=== PATIENT | female | born 1945 | race Caucasian/White ===

== ENCOUNTER 2020-01-04 08:58 | Outpatient (CLI) | payer MEDICARE, SELFPAY | END 2020-01-04 08:59 | disposition home or self-care (01) | LOC: ANHCOVIDDT 09:00 | PROVIDERS: PCP Family Medicine; Visit Provider Internal Medicine Gastroenterology | DX: Z01.818 Encounter for other preprocedural examination (principal); Z53.8 Procedure and treatment not carried out for other reasons | CPT/HCPCS: 99199; 87635; C9803; U0003 ==

== ENCOUNTER 2020-01-07 07:48 | Outpatient (CLI) | payer MEDICARE, SELFPAY ==
[2020-01-07 18:51] LABS: SARS-CoV-2 RNA PCR Negative
== END 2020-01-07 07:49 | disposition home or self-care (01) ==
LOC: ANHCOVIDDT 07:48
PROVIDERS: PCP Family Medicine; Visit Provider Internal Medicine Gastroenterology
DX: Z01.812 Encounter for preprocedural laboratory examination (principal); Z20.828 Contact with and (suspected) exposure to other viral communicable diseases
CPT/HCPCS: 87635; C9803; U0003

== ENCOUNTER 2020-01-08 01:23 | Day surgery (SDC) | payer MEDICARE, SELFPAY ==
[2020-01-01 15:18] VITALS: BMI 43.1
--- NOTE | 2020-01-08 10:42 | P.PNAN_ITS ---
Anes - Initial Pre Proc Eval Procedure: Operation Date: 01/08/20 12:00 Proposed Procedures p Esophagogastroduodenoscopy - Jesus Alberto Zelaya DO Date/Time: 01/08/20 10:42 Surgeon: Jesus Alberto Zelaya DO Pre Op Diagnosis: cirrhosis of liver Patient Data Age: 74 Gender: F Height: 1.63 m Weight: 114 kg Allergies Allergy/AdvReac Type Severity Reaction Status Date / Time azithromycin Allergy Mild Diarrhea Verified 11/11/19 14:46 Penicillins Allergy Unknown Unknown Unverified 11/11/19 14:46 sulfamethizole Allergy Unknown Verified 11/11/19 14:46 sulfamethoxazole AdvReac Intermediate COULDNT Verified 11/11/19 14:46 WALK trimethoprim AdvReac Intermediate COULDNT Verified 11/11/19 14:46 WALK Home Medications Medication Instructions Recorded Confirmed Type clobetasol 0.05 % topical cream 1 applic TOPICAL DAILY PRN 09/01/19 01/01/20 History metformin 500 mg tablet,extended 1,000 mg PO DAILY #180 tablet 09/24/19 01/01/20 Rx release 24 hr Patient hx anesthesia problems: none Family hx anesthesia problems: none PMFSH Past Medical History Medical History Arthritis Breast cancer Carpal tunnel syndrome FH: cholecystectomy FH: mastectomy Morbid obesity with BMI of 40.0-44.9, adult 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 SEVERE PAIN-ER CT SHOWED CIRRHOSIS Surgical History Surgical History H/O: hysterectomy History of carpal tunnel surgery History of total left knee replacement History of total right knee replacement S/P surgery on nasal septum Family History Family History Mother Polymyalgia rheumatica Son Trigeminal nerve disease Sibling Churg-Tung syndrome Mother Aneurysm Mother Heart disease Mother Carotid artery obstruction Other Family history of musculoskeletal disease Social History Social History Smoking status: Never smoker Second hand tobacco smoke exposure: No Alcohol intake: never Anes - Eval Final PreProcedure Day of Procedure 01/08/20 10:42 Patient weight: morbidly obese Heart: regular rate and rhythm Lungs: clear to auscultation and normal air movement Airway: Mallampati scale class II Neurological: alert and oriented Last oral intake: >/= 8 hours ASA classification: III Emergent: no Anesthetic plan: proceed Anesthesia type and monitoring: general GIVS Informed Consent: The patient's anesthetic plan and its attendant risks and be nefits were discussed with the patient/family/POA. Questions were solicited and answers provided to the satisfaction of the patient/family/POA.
[2020-01-08 10:53] VITALS: BP 151/70; PULSE 73; RESP 16; TEMP 36.5; O2SAT 99; BMI 44.1
[2020-01-08] MEDS: LACTATED RINGERS 1,000 ML 150 ML IV CONT (11:17)
[2020-01-08 11:22] LABS: Glucose Point of Care 133 (65-105)
--- NOTE | 2020-01-08 11:56 | PM.IMHP ---
H&P: HPI History of Present Illness Chief complaint: cirrhosis of liver Narrative: Radha Harrison is a 74 year old femaleIs here for EGD. Impression: Cirrhosis of the liver. For past medical history. Recommendation: EGD. History: this very pleasant lady is here for EGD. She has been found to have underlying cirrhosis. Etiology cirrhosis probably idiopathic/ LYNN involved. Workup is pending. GI review systems negative at this time. She is here for EGD to assess for varices. General: very pleasant patient in no acute distress. HEENT: Head was normocephalic sclerae is clear mouth without masses neck was supple. Heart: Rate rhythm regular without S3 or S4. Lungs: CTA. Abdomen: Soft with no guarding or rigidity. Bowel sounds were active. Neurologic: Cranial nerves 2 through 12 intact. No focal defects. No clonus. Musculoskeletal system: Revealed no joint tenderness or swelling no muscle atrophy. Extremities: Reveal no significant edema. Skin: Warm and dry with normal turgor. Mental status: intact. Patient is alert and oriented. Review of Systems Review of Systems: All systems reviewed & are unremarkable except as noted in HPI and below PMFSH Past Medical History Medical History (Updated 01/08/20 @ 11:55 by Jesus Alberto Zelaya DO) Arthritis Breast cancer RTX Carpal tunnel syndrome Cirrhosis Morbid obesity with BMI of 40.0-44.9, adult Prediabetes Vulva neoplasm Surgical History Surgical History H/O: hysterectomy History of carpal tunnel surgery History of total left knee replacement History of total right knee replacement S/P surgery on nasal septum Family History Family History Mother Polymyalgia rheumatica Son Trigeminal nerve disease Sibling Churg-Tung syndrome Mother Aneurysm Mother Heart disease Mother Carotid artery obstruction Other Family history of musculoskeletal disease Social History Social History Smoking status: Never smoker Second hand tobacco smoke exposure: No Alcohol intake: never Meds Home Medications and Allergies Home Medications Medication Instructions Recorded Confirmed Type clobetasol 0.05 % topical cream 1 applic TOPICAL DAILY PRN 09/01/19 01/01/20 History metformin 500 mg tablet,extended 1,000 mg PO DAILY #180 tablet 09/24/19 01/01/20 Rx release 24 hr Allergies Allergy/AdvReac Type Severity Reaction Status Date / Time azithromycin Allergy Mild Diarrhea Verified 01/08/20 10:51 Penicillins Allergy Unknown Unknown Verified 01/08/20 10:51 sulfamethizole Allergy Unknown Other Verified 01/08/20 10:51 sulfamethoxazole AdvReac Intermediate COULDNT Verified 01/08/20 10:51 WALK trimethoprim AdvReac Intermediate COULDNT Verified 01/08/20 10:51 WALK Vital Signs Vital Signs - 24 hr 01/08/20 10:53 Temperature 36.5 C Pulse Rate 73 Respiratory Rate 16 Blood Pressure 151/70 H Pulse Oximetry 99
[2020-01-08 12:15] VITALS: BP 121/66; PULSE 67; RESP 16; O2SAT 97
[2020-01-08 12:25] VITALS: BP 127/73; PULSE 66; RESP 18; O2SAT 98
[2020-01-08 12:35] VITALS: BP 141/82; PULSE 65; RESP 18; O2SAT 97
== END 2020-01-08 12:54 | disposition home or self-care (01) ==
PROVIDERS: PCP Family Medicine; Visit Provider Internal Medicine Gastroenterology
PROC: 0DJ08ZZ Inspection of Upper Intestinal Tract, Via Natural or Artificial Opening Endoscopic (ICD-10-PCS; CPT 43235; principal; 2020-01-08 12:00)
DX: K74.60 Unspecified cirrhosis of liver (principal); K31.7 Polyp of stomach and duodenum; K29.70 Gastritis, unspecified, without bleeding; K31.819 Angiodysplasia of stomach and duodenum without bleeding; E66.01 Morbid (severe) obesity due to excess calories; Z68.41 Body mass index [BMI] 40.0-44.9, adult; Z79.84 Long term (current) use of oral hypoglycemic drugs; Z85.3 Personal history of malignant neoplasm of breast
CPT/HCPCS: 43239; 43270; 87081; 88305; J2704; J7120

== ENCOUNTER 2020-02-22 07:08 | Outpatient (CLI) | payer MEDICARE, SELFPAY ==
[2020-02-22 07:34] LABS: Basophils Percent Auto 0.3 % (0.2-1.2); Eosinophils Absolute Auto 0.4 K/mm3 (0-0.3); Eosinophils Percent Auto 5.6 % (0-4.4); Hematocrit 39.5 % (37.0-47.0); Immature Granulocyte Absolute 0.01 K/mm3 (0.00-0.031); Immature Granulocyte Percent A 0.2 % (0-0.5); Lymphocytes Absolute Auto 2.21 K/mm3 (0.9-3.2); Lymphocytes Percent Auto 35.1 % (18.3-44.2); Mean Corpuscular HGB Conc 32.9 g/dl (32-36); Mean Corpuscular Hemoglobin 30.3 pg (26-34); Mean Corpuscular Volume 92.1 fl (80-100); Mean Platelet Volume 9.8 fl (7.4-10.4); Monocytes Absolute Auto 0.7 K/mm3 (0.1-0.6); Monocytes Percent Auto 10.8 % (2.6-8.5); Platelet Count Result 175 k/mm3 (150-375); Red Blood Count 4.29 M/mm3 (4.2-5.4); Red Cell Distribution Width 13.5 % (11.5-14.5); White Blood Count 6.3 K/mm3 (4.5-10.0)
[2020-02-22 07:40] LABS: INR 1.2; Prothrombin Time 14.5 Seconds (11.1-14.7)
[2020-02-22 07:43] LABS: Alanine Aminotransferase 33 U/L (4-35); Albumin Level 4.1 g/dL (3.5-5.1); Alkaline Phosphatase 87 U/L (38-126); Aspartate Amino Transferase 26 U/L (14-36); Bilirubin,Total 1.2 mg/dL (0.2-1.3); Blood Urea Nitrogen 17 mg/dL (7-17); Calcium 9.7 mg/dL (8.4-10.2); Carbon Dioxide 27 mmol/L (22-30); Chloride 102 mmol/L (98-107); Cholesterol 162 mg/dL (0-200); Estimated Glomerular Filt Rate > 60; Glucose 133 mg/dL (65-105); HDL Direct 47 mg/dL; Potassium 4.1 mmol/L (3.4-5.0); Sodium 136 mmol/L (137-145); Triglycerides 127 mg/dL (<150)
[2020-02-22 07:54] LABS: LDL Cholesterol Direct 84 mg/dL
[2020-02-22 08:37] LABS: MALB Creatinine Ratio < 5.8 mg/g (0-30); Microalbumin Urine Random < 6.0 mg/L (0-16.7)
[2020-02-22 08:50] LABS: Hemoglobin A1C 6.9 % (<5.7)
[2020-02-27 17:58] LABS: Alpha Fetoprotein Tumor Marker 5.5 ng/mL (<6.1)
== END 2020-02-22 07:09 | disposition home or self-care (01) ==
PROVIDERS: PCP Family Medicine; Referring Provider Internal Medicine Gastroenterology; Visit Provider Family Medicine
DX: K74.60 Unspecified cirrhosis of liver (principal); E11.9 Type 2 diabetes mellitus without complications; Z13.220 Encounter for screening for lipoid disorders; Z68.41 Body mass index [BMI] 40.0-44.9, adult
CPT/HCPCS: 36415; 80053; 80061; 82043; 82105; 83036; 84443; 85025; 85610

== ENCOUNTER 2020-04-09 11:26 | Emergency (ER) | payer MEDICARE, SELFPAY ==
[2020-04-09 11:31] VITALS: BP 184/69; PULSE 80; RESP 20; TEMP 36.4; O2SAT 96
--- NOTE | 2020-04-09 11:33 | ED.UPPEXIN ---
HPI - Extremity Injury (Upper) General Chief Complaint: Extremity Problem,Nontraumatic Stated Complaint: rt arm pain Time Seen by Provider: 04/09/20 11:40 Source: patient and RN notes reviewed Mode of arrival: ambulatory Limitations: no limitations History of Present Illness HPI narrative: 74-year-old female with history of liver dysfunction presents with concern for right shoulder pain. Sure denies acute injury, trauma to the shoulder. Denies any past injury to the shoulder. Reports she sleeps on her right shoulder. Reports on the joint and lateral shoulder began hurting when she moves the arm, particularly when she pulled on her refrigerator door. Reports since then the pain has worsened, with pain at rest, worsening pain with range of motion. She denies swelling, redness, bruising. She denies chest pain, shortness of breath. Denies any intervention for her pain. MD complaint: injury to: right and shoulder Related Data Allergies Allergy/AdvReac Type Severity Reaction Status Date / Time azithromycin Allergy Mild Diarrhea Verified 02/17/20 15:17 Penicillins Allergy Unknown Unknown Verified 02/17/20 15:17 sulfamethizole Allergy Unknown Other Verified 02/17/20 15:17 sulfamethoxazole AdvReac Intermediate COULDNT Verified 02/17/20 15:17 WALK trimethoprim AdvReac Intermediate COULDNT Verified 02/17/20 15:17 WALK Review of Systems Review of Systems: Narrative: CONSTITUTIONAL: Denies malaise, chills, sweats, or fever. CARDIOVASCULAR: Denies chest pain, palpitations, or edema. RESPIRATORY: Denies cough or dyspnea. GASTROINTESTINAL: Denies abdominal pain, nausea, vomiting SKIN: Denies bruising, redness MUSCULOSKELETAL: Reports right shoulder pain NEUROLOGIC: Denies numbness, weakness. All systems reviewed & are unremarkable except as noted in HPI and below PMFSH Past Medical History Medical History (Updated 04/09/20 @ 11:50 by Anisha Washington NP) Arthritis Breast cancer RTX Carpal tunnel syndrome Chronic low back pain without sciatica Cirrhosis History of deviated nasal septum History of right breast cancer Lichen sclerosus of female genitalia Morbid obesity with BMI of 40.0-44.9, adult Type 2 diabetes mellitus without complication, without long-term current use of insulin Unspecified osteoarthritis, unspecified site Vulva neoplasm Surgical History Surgical History H/O: hysterectomy History of appendectomy History of carpal tunnel release (~1987) History of carpal tunnel surgery History of cholecystectomy (~1974) History of foot surgery (~1979) History of knee replacement 1999 & 2004 History of lumpectomy (~2013) History of total left knee replacement History of total right knee replacement Hx of hysterectomy, total (~10/1992) S/P surgery on nasal septum (~1969) Social History Social History (Updated 02/17/20 @ 15:26 by Marcela Sofia) Smoking status: Never smoker Second hand tobacco smoke exposure: No Alcohol intake: never Substance use: never Substance use type: does not use Gender identity (if verbalized by the patient): Female Comments At time of signature, agree with nursing past medical, surgical, social and family history. There is no relevant family history pertinent to the presenting complaint Exam Narrative: Exam Narrative: GENERAL: Well-appearing, well-nourished, and in no acute distress. HEAD: Normocephalic, atraumatic. EYES: PERRLA, conjunctivae clear NECK: Supple. CHEST: Speaks in full sentences. No respiratory distress. HEART: Regular rate and rhythm. Normal and equal peripheral pulses. EXTREMITIES: Right arm, hand, digits have normal strength and sensation, no edema. Limited range of motion related to pain. 5/5 strength with shoulder abduction, abduction, flexion and extension. Normal sensation with sensitivity to light touch and pain. No open wounds, no skin tenting, no devitalized tissue or atr
== END 2020-04-09 12:00 | disposition home or self-care (01) ==
PROVIDERS: Emergency Provider Nurse Practitioner; PCP Family Medicine
DX: M25.511 Pain in right shoulder (principal); Z96.653 Presence of artificial knee joint, bilateral; M19.90 Unspecified osteoarthritis, unspecified site; K74.60 Unspecified cirrhosis of liver; Z85.3 Personal history of malignant neoplasm of breast; E66.01 Morbid (severe) obesity due to excess calories; Z68.41 Body mass index [BMI] 40.0-44.9, adult; E11.9 Type 2 diabetes mellitus without complications; Z79.4 Long term (current) use of insulin; N90.4 Leukoplakia of vulva
CPT/HCPCS: 99213; A4565; G0463

== ENCOUNTER → 2020-04-18 14:39 | Outpatient (CLI) | payer MEDICARE, OTHER, SELFPAY ==
--- NOTE | ~2020-04-18 | XR_ITS ---
XR finger 4th LT min 2V DATE: 04/18/2020 15:05 INDICATION: Superficial foreign body TECHNIQUE: 4 views COMPARISON: None FINDINGS: There is a probable old anteriorly displaced avulsion fracture of the base of distal phalan x. There is osteoarthritic change at the proximal and particularly distal interphalangeal joints with a probable degenerative ossicle at the distal interphalangeal joint. No recent fracture or dislocation, periosteal reaction or bone destruction is detected. IMPRESSION: Probable anterior avulsion fracture of base of the distal phalanx Osteoarthritis Reviewed, dictated and finalized at location A.
== END ==
PROVIDERS: Visit Provider Nurse Practitioner
DX: S60.459A Superficial foreign body of unspecified finger, initial encounter (principal); X58.XXXA Exposure to other specified factors, initial encounter; M19.042 Primary osteoarthritis, left hand
CPT/HCPCS: 73140

== ENCOUNTER 2020-06-25 06:44 | Outpatient (NON) | payer MEDICARE, SELFPAY ==
[2020-06-26 21:18] LABS: SARS-CoV-2 RNA PCR Positive
== END 2020-06-25 06:45 ==
LOC: ANHCOVIDDT 07:06
PROVIDERS: Visit Provider Nurse Practitioner Family
DX: U07.1 COVID-19 (principal)
CPT/HCPCS: 87635; C9803; U0003

== ENCOUNTER → 2020-11-17 15:52 | Outpatient (CLI) | payer MEDICARE, SELFPAY ==
--- NOTE | ~2020-11-17 | XR_ITS ---
EXAMINATION: XR toe 3rd LT min 2V DATE: 11/17/2020 16:55 INDICATION: Left third toe injury. TECHNIQUE: 4 views of left third toe were obtained. COMPARISON: None. FINDINGS: Bone alignment is normal. No fracture. There is mild osteoarthritis of third proximal inter phalangeal joint and severe osteoarthritis of third distal interphalangeal joint. IMPRESSION: 1. Polyarticular osteoarthritis. Reviewed, dictated and finalized at location A.
== END ==
PROVIDERS: Visit Provider Nurse Practitioner Family
DX: S90.122A Contusion of left lesser toe(s) without damage to nail, initial encounter (principal); M19.072 Primary osteoarthritis, left ankle and foot
CPT/HCPCS: 73660

== ENCOUNTER → 2020-12-08 10:26 | Outpatient (CLI) | payer MEDICARE, SELFPAY ==
--- NOTE | ~2020-12-08 | DEXA_ITS ---
Bone Density Report Name: Radha Harrison Age: 75 Sex: Female Ethnicity: White Date of : 1945 Indication: postmenopausal; screening for osteoporosis; height loss; hysterectomy; Referring Provider: Joellen Wall Study: Bone densitometry was performed. Exam Date: December 08, 2020 Accession number: [id number] Bone Density: Region BMD T-score Z-score Classification AP Spine (L1-L4) 1.343 2.7 5.2 Normal Femoral Neck (Left) 0.849 0.0 2.1 Normal Total Hip (Left) 1.191 2.0 3.9 Normal Femoral Neck (Right) 0.992 1.3 3.4 Normal Total Hip (Right) 1.155 1.7 3.6 Normal Total Hip Mean 1.173 1.9 3.8 Normal World Health Organization criteria for BMD impression classify patients as: Normal (T-score at or above -1.0), Osteopenia (T-score between -1.0 and -2.5), or Osteoporosis (T-score at or below -2.5). 10-year Fracture Risk: FRAX not reported because: All T-scores for Spine Total, Hip Total, Femoral Neck at or above -1.0 Previous Exams: Region Exam Age BMD T-score BMD Change BMD Change Date g/cm2 vs Baseline vs Previous AP Spine(L1-L4) 12/08/2020 75 1.343 2.7 -0.129* -0.091* 08/22/2018 73 1.434 3.5 -0.038* 0.028* 12/30/2014 69 1.406 3.3 -0.066* 0.023* 11/11/2012 67 1.382 3.0 -0.089* -0.089* 11/10/2010 65 1.472 3.9 Total Hip(Left) 12/08/2020 75 1.191 2.0 -0.111* -0.047* 08/22/2018 73 1.238 2.4 -0.064* -0.023 12/30/2014 69 1.261 2.6 -0.041* -0.031* 11/11/2012 67 1.293 2.9 -0.009 -0.009 11/10/2010 65 1.302 2.9 Total Hip(Right) 12/08/2020 75 1.155 1.7 -0.120* -0.125* 08/22/2018 73 1.281 2.8 0.005 -0.041* 12/30/2014 69 1.321 3.1 0.046* 0.038* 11/11/2012 67 1.284 2.8 0.008 0.008 11/10/2010 65 1.276 2.7 *Denotes significance at 95% confidence level, LSC for AP Spine = 0.022 g/cm2, LSC for Total Hip = 0.027 g/cm2 Clinical Information Provided by Patient: Has the following medical conditions: Hysterectomy Patient maximum height was 65 Menopause Age: 48 No regular weight bearing exercise Drinks caffeinated beverages Onset of menses at age 10 Number of children 3 Impression: The patient has normal bone mass. The BMD for the AP Spine(L1-L4) decreased, lynn
== END ==
PROVIDERS: PCP Family Medicine
DX: Z78.0 Asymptomatic menopausal state (principal)
CPT/HCPCS: 77080

== ENCOUNTER 2020-12-22 08:34 | Outpatient (CLI) | payer MEDICARE, SELFPAY ==
[2020-12-22 09:27] LABS: Alanine Aminotransferase 39 U/L (4-35); Albumin Level 4.2 g/dL (3.5-5.1); Alkaline Phosphatase 79 U/L (38-126); Anion Gap 4 mmol/L (8-16); Aspartate Amino Transferase 28 U/L (14-36); Bilirubin,Total 1.2 mg/dL (0.2-1.3); Blood Urea Nitrogen 18 mg/dL (7-17); Calcium 10.3 mg/dL (8.4-10.2); Carbon Dioxide 32 mmol/L (22-30); Chloride 103 mmol/L (98-107); Estimated Glomerular Filt Rate > 60; Glucose 132 mg/dL (65-105); Potassium 4.2 mmol/L (3.4-5.0); Sodium 139 mmol/L (137-145)
== END 2020-12-22 08:35 | disposition home or self-care (01) ==
LOC: ANHLAB 08:37
PROVIDERS: PCP Family Medicine; Visit Provider Family Medicine
DX: E11.9 Type 2 diabetes mellitus without complications (principal)
CPT/HCPCS: 36415; 80053; 83036

== ENCOUNTER 2021-04-06 07:13 | Outpatient (CLI) | payer MEDICARE, SELFPAY ==
--- NOTE | ~2021-04-06 | XR_ITS ---
XR lumbar spine 2-3V 04/06/2021 08:22 Indication: Low back pain Procedure: 3 views of the lumbar spine Comparison: 07/11/2015 Findings: There is disc narrowing at all lumbar levels with grade 1 degenerative spondylolisthesis at L4-5. There is moderate multilevel facet hypertrophy. Pedicles intact. There are cholecystectomy cli ps. Sacral foramen are symmetric. There is advanced multilevel facet hypertrophy at L4-5 and L5-S1. T here has been progression of disc narrowing at L4-5 and L3-4. Impression: 1: Progression of severe lumbar spondylosis with grade 1 spondylolisthesis at L4-5. Reviewed, dictated and finalized at location A. Impression: 1: Progression of severe lumbar spondylosis with grade 1 spondylolisthesis at L 4-5.
[2021-04-06 07:43] LABS: Basophils Percent Auto 0.7 % (0.2-1.2); Eosinophils Absolute Auto 0.4 K/mm3 (0-0.3); Eosinophils Percent Auto 6.2 % (0-4.4); Hematocrit 40.8 % (37.0-47.0); Hemoglobin 13.3 g/dL (12.0-15.0); Immature Granulocyte Absolute 0.02 K/mm3 (0.00-0.031); Immature Granulocyte Percent A 0.3 % (0-0.5); Lymphocytes Absolute Auto 2.15 K/mm3 (0.9-3.2); Lymphocytes Percent Auto 35.8 % (18.3-44.2); Mean Corpuscular HGB Conc 32.6 g/dl (32-36); Mean Corpuscular Hemoglobin 30.7 pg (26-34); Mean Corpuscular Volume 94.2 fl (80-100); Mean Platelet Volume 9.7 fl (7.4-10.4); Monocytes Absolute Auto 0.6 K/mm3 (0.1-0.6); Monocytes Percent Auto 10.5 % (2.6-8.5); Neutrophils Absolute Auto 2.8 K/mm3 (1.3-6.7); Neutrophils Percent Auto 46.5 % (45.5-73.1); Platelet Count Result 163 k/mm3 (150-375); Red Blood Count 4.33 M/mm3 (4.2-5.4); Red Cell Distribution Width 13.7 % (11.5-14.5)
[2021-04-06 08:00] LABS: Alanine Aminotransferase 35 U/L (4-35); Alkaline Phosphatase 80 U/L (38-126); Anion Gap 4 mmol/L (8-16); Aspartate Amino Transferase 27 U/L (14-36); Bilirubin,Total 1.5 mg/dL (0.2-1.3); Blood Urea Nitrogen 17 mg/dL (7-17); Calcium 9.5 mg/dL (8.4-10.2); Carbon Dioxide 31 mmol/L (22-30); Chloride 104 mmol/L (98-107); Cholesterol 187 mg/dL (0-200); Estimated Glomerular Filt Rate > 60; Glucose 132 mg/dL (65-110); HDL Direct 61 mg/dL; Potassium 3.9 mmol/L (3.4-5.0); Sodium 139 mmol/L (137-145); Triglycerides 88 mg/dL (<150)
[2021-04-06 08:11] LABS: LDL Cholesterol Direct 86 mg/dL
[2021-04-06 08:24] LABS: Hemoglobin A1C 6.9 % (<5.7)
[2021-04-06 09:11] LABS: Vitamin D 25 Hydroxy 47.6 ng/mL
[2021-04-07 02:33] LABS: Free T4 Free Thyroxine Reflex 1.41 ng/dL (0.78-2.19)
== END 2021-04-06 07:14 | disposition home or self-care (01) ==
PROVIDERS: PCP Family Medicine; Visit Provider Family Medicine
DX: M54.5 Low back pain (principal); E11.9 Type 2 diabetes mellitus without complications; Z13.220 Encounter for screening for lipoid disorders; E55.9 Vitamin D deficiency, unspecified; K74.60 Unspecified cirrhosis of liver; G89.29 Other chronic pain; M47.816 Spondylosis without myelopathy or radiculopathy, lumbar region; M43.16 Spondylolisthesis, lumbar region
CPT/HCPCS: 36415; 72100; 80053; 80061; 82306; 83036; 84439; 84443; 84480; 85025

== ENCOUNTER 2021-10-05 07:05 | Outpatient (CLI) | payer MEDICARE, SELFPAY ==
[2021-10-05 07:32] LABS: Alanine Aminotransferase 39 U/L (4-35); Alkaline Phosphatase 86 U/L (38-126); Anion Gap 6 mmol/L (8-16); Aspartate Amino Transferase 28 U/L (14-36); Bilirubin,Total 1.2 mg/dL (0.2-1.3); Blood Urea Nitrogen 20 mg/dL (7-17); Calcium 9.7 mg/dL (8.4-10.2); Carbon Dioxide 31 mmol/L (22-30); Chloride 102 mmol/L (98-107); Estimated Glomerular Filt Rate > 60; Glucose 161 mg/dL (65-110); Potassium 4.2 mmol/L (3.4-5.0); Sodium 139 mmol/L (137-145)
[2021-10-05 08:18] LABS: Hemoglobin A1C 6.9 % (<5.7)
== END 2021-10-05 07:06 | disposition home or self-care (01) ==
PROVIDERS: PCP Family Medicine; Visit Provider Family Medicine
DX: E11.9 Type 2 diabetes mellitus without complications (principal)
CPT/HCPCS: 36415; 80053; 83036

== ENCOUNTER 2022-05-07 12:42 | Outpatient (CLI) | payer MEDICARE, SELFPAY ==
--- NOTE | ~2022-05-07 | US_ITS ---
EXAMINATION: US carotid duplex BI DATE: 05/07/2022 14:03 INDICATION: Signs and symptoms of circulatory system. TECHNIQUE: Grayscale, color Doppler, and pulsed Doppler images of the cervical carotid arteries were obtained. The degree of vessel stenosis is placed in one of the following categories: normal, <50%, 5 0-69%, >=70% but less than near-occlusion, near-occlusion, or total occlusion. Note that percent sten osis relative to normal distal artery lumen diameter is indirectly measured from velocity measurement s as described by Hill, et al. Radiology 2003; 229:340-346. Notes: Normal: Peak systolic velocity <125 centimeters/sec and no plaque <50%. Peak systolic velocity <125 ( EDV <40; ICA/CCA PSV ratio <2.0; used these factors only a tandem lesions or low cardiac output or co ntralateral disease) 50-69 %: PSV 125-230 (EDV 40-100; ratio 2-4) >= 70% but less than near occlusion: PSV greater than 230 (EDV > 100; ratio> 4.0) Near Occlusion: PSV that is variable; markedly narrowed lumen Occlusion: Absent flow on color/spectral Doppler and no lumen on sethi scale. COMPARISON: None. FINDINGS: RIGHT: The right common carotid artery (CCA) peak systolic velocity (PSV) is 78 cm/s. The right internal car otid artery (ICA) PSV is 78 cm/s. The right ICA end-diastolic velocity (EDV) is 20 cm/s. The right IC A/CCA PSV ratio is 1.0. The external carotid artery (ECA) PSV is 120 cm/s. There is antegrade flow in the right vertebral artery. LEFT: The left CCA PSV is 63 cm/s. The left ICA PSV is 74 cm/s. The left ICA EDV is 21 cm/s. The left ICA/C CA PSV ratio is 1.2. The ECA PSV is 73 cm/s. There is antegrade flow in the left vertebral artery. IMPRESSION: 1. Less than 50% stenosis in the right internal carotid artery by sonographic criteria. 2. Less than 50% stenosis in the left internal carotid artery by sonographic criteria. Reviewed, dictated and finalized at location A. IMPRESSION: 1. Less than 50% stenosis in the right internal carotid artery by sonographic c michealeria. 2. Less than 50% stenosis in the left internal carotid artery by sonographic cr kemar.
== END 2022-05-07 12:43 | disposition home or self-care (01) ==
PROVIDERS: PCP Family Medicine; Visit Provider Nurse Practitioner Family
DX: R09.89 Other specified symptoms and signs involving the circulatory and respiratory systems (principal); I65.23 Occlusion and stenosis of bilateral carotid arteries
CPT/HCPCS: 93880

== ENCOUNTER 2022-05-09 07:42 | Outpatient (CLI) | payer MEDICARE, SELFPAY ==
[2022-05-09 08:06] LABS: Basophils Absolute Auto 0.1 K/mm3 (0.0-0.1); Basophils Percent Auto 0.8 % (0.2-1.2); Eosinophils Absolute Auto 0.3 K/mm3 (0-0.3); Eosinophils Percent Auto 4.4 % (0-4.4); Hematocrit 42.9 % (37.0-47.0); Hemoglobin 13.8 g/dL (12.0-15.0); Immature Granulocyte Absolute 0.02 K/mm3 (0.00-0.031); Immature Granulocyte Percent A 0.3 % (0-0.5); Lymphocytes Absolute Auto 2.13 K/mm3 (0.9-3.2); Lymphocytes Percent Auto 29.5 % (18.3-44.2); Mean Corpuscular HGB Conc 32.2 g/dl (32-36); Mean Corpuscular Hemoglobin 30.5 pg (26-34); Mean Corpuscular Volume 94.7 fl (80-100); Mean Platelet Volume 9.8 fl (7.4-10.4); Monocytes Absolute Auto 0.8 K/mm3 (0.1-0.6); Monocytes Percent Auto 10.4 % (2.6-8.5); Neutrophils Absolute Auto 3.9 K/mm3 (1.3-6.7); Neutrophils Percent Auto 54.6 % (45.5-73.1); Platelet Count Result 168 k/mm3 (150-375); Red Blood Count 4.53 M/mm3 (4.2-5.4); Red Cell Distribution Width 13.5 % (11.5-14.5); White Blood Count 7.2 K/mm3 (4.5-10.0)
[2022-05-09 08:18] LABS: Hemoglobin A1C 6.7 % (<5.7)
[2022-05-09 08:19] LABS: Alanine Aminotransferase 40 U/L (6-35); Albumin Level 4.1 g/dL (3.5-5.1); Alkaline Phosphatase 91 U/L (38-126); Anion Gap 8 mmol/L (8-16); Aspartate Amino Transferase 27 U/L (14-36); Bilirubin,Total 1.1 mg/dL (0.2-1.3); Blood Urea Nitrogen 19 mg/dL (7-17); Calcium 9.5 mg/dL (8.4-10.2); Carbon Dioxide 27 mmol/L (22-30); Chloride 102 mmol/L (98-107); Cholesterol 189 mg/dL (0-200); Estimated Glomerular Filt Rate > 60; Glucose 148 mg/dL (65-110); HDL Direct 62 mg/dL; Potassium 4.2 mmol/L (3.4-5.0); Sodium 137 mmol/L (137-145); Triglycerides 125 mg/dL (<150)
[2022-05-09 08:30] LABS: LDL Cholesterol Direct 95 mg/dL
[2022-05-09 11:10] LABS: MALB Creatinine Ratio < 10.0 mg/g (0-30); Microalbumin Urine Random < 6.0 mg/L (0-16.7)
== END 2022-05-09 07:43 | disposition home or self-care (01) ==
LOC: ANHLAB 07:45
PROVIDERS: PCP Nurse Practitioner Family; Visit Provider Nurse Practitioner Family
DX: I10 Essential (primary) hypertension (principal); E78.5 Hyperlipidemia, unspecified; E11.9 Type 2 diabetes mellitus without complications
CPT/HCPCS: 36415; 80053; 80061; 82043; 83036; 85025

== ENCOUNTER 2022-08-07 10:16 | Outpatient (CLI) | payer MEDICARE, SELFPAY ==
--- NOTE | ~2022-08-07 | XR_ITS ---
Left foot Technique: AP, oblique, and lateral views were obtained. Clinical History: Pain Findings: No acute fracture or dislocation is seen. There is extensive degenerative change of the tar sometatarsal joints as well as the naviculocuneiform and talonavicular joints. Soft tissues are unrem arkable. Impression: Extensive osteoarthritic change in the hindfoot and midfoot, as detailed above. Reviewed, dictated and finalized at location M. TH SYSTEMS ANALYST Impression: Extensive osteoarthritic change in the hindfoot and midfoot, as detailed above.
== END 2022-08-07 10:17 | disposition home or self-care (01) ==
PROVIDERS: PCP Nurse Practitioner Family; Visit Provider Podiatrist Foot & Ankle Surgery
DX: S93.622A Sprain of tarsometatarsal ligament of left foot, initial encounter (principal); X58.XXXA Exposure to other specified factors, initial encounter
CPT/HCPCS: 73630

== ENCOUNTER 2022-08-15 11:52 | Outpatient (CLI) | payer MEDICARE, SELFPAY ==
--- NOTE | ~2022-08-15 | US_ITS ---
EXAMINATION: US venous doppler [facility] DATE: 08/15/2022 12:24 INDICATION: Lower limb pain TECHNIQUE: Grayscale ultrasound images without and with compression and Doppler ultrasound images of the left lower extremity veins were obtained. COMPARISON: None. FINDINGS: The visualized portions of left common femoral vein, profunda (deep) femoral vein, femoral vein, popl iteal vein, peroneal veins, posterior tibial veins, gastrocnemius vein and greater saphenous vein out flow are patent. IMPRESSION: 1. No deep venous thrombosis in the left lower limb. Reviewed, dictated and finalized at location A. ATE INVESTIGATOR
== END 2022-08-15 11:53 | disposition home or self-care (01) ==
PROVIDERS: PCP Family Medicine; Visit Provider Family Medicine
DX: M79.605 Pain in left leg (principal)
CPT/HCPCS: 93971

== ENCOUNTER 2022-11-13 07:02 | Outpatient (CLI) | payer MEDICARE, SELFPAY ==
[2022-11-13 07:34] LABS: Hemoglobin A1C 6.8 % (<5.7)
[2022-11-13 07:35] LABS: Alanine Aminotransferase 41 U/L (6-35); Alkaline Phosphatase 86 U/L (38-126); Anion Gap 6 mmol/L (8-16); Aspartate Amino Transferase 23 U/L (14-36); Bilirubin,Total 1.4 mg/dL (0.2-1.3); Blood Urea Nitrogen 18 mg/dL (7-17); Calcium 9.1 mg/dL (8.4-10.2); Carbon Dioxide 30 mmol/L (22-30); Chloride 102 mmol/L (98-107); Cholesterol 180 mg/dL (0-200); Estimated Glomerular Filt Rate > 60; Glucose 150 mg/dL (65-110); HDL Direct 54 mg/dL; Potassium 4.1 mmol/L (3.4-5.0); Sodium 138 mmol/L (137-145); Triglycerides 156 mg/dL (<150)
[2022-11-13 07:46] LABS: LDL Cholesterol Direct 87 mg/dL
[2022-11-13 08:16] LABS: Vitamin D 25 Hydroxy 28.2 ng/mL
== END 2022-11-13 07:03 | disposition home or self-care (01) ==
PROVIDERS: PCP Family Medicine; Visit Provider Nurse Practitioner Family
DX: E11.9 Type 2 diabetes mellitus without complications (principal); E55.9 Vitamin D deficiency, unspecified
CPT/HCPCS: 36415; 80053; 80061; 82306; 83036; 84443

== ENCOUNTER 2023-05-17 10:13 | Outpatient (CLI) | payer MEDICARE, SELFPAY ==
[2023-05-17 11:05] LABS: Basophils Percent Auto 0.5 % (0.2-1.2); Eosinophils Absolute Auto 0.2 K/mm3 (0-0.3); Eosinophils Percent Auto 3.3 % (0-4.4); Hematocrit 44.1 % (37.0-47.0); Hemoglobin 14.2 g/dL (12.0-15.0); Immature Granulocyte Absolute 0.01 K/mm3 (0.00-0.031); Immature Granulocyte Percent A 0.2 % (0-0.5); Lymphocytes Absolute Auto 1.77 K/mm3 (0.9-3.2); Lymphocytes Percent Auto 27.9 % (18.3-44.2); Mean Corpuscular HGB Conc 32.2 g/dl (32-36); Mean Corpuscular Hemoglobin 30.9 pg (26-34); Mean Corpuscular Volume 95.9 fl (80-100); Mean Platelet Volume 10.1 fl (7.4-10.4); Monocytes Absolute Auto 0.6 K/mm3 (0.1-0.6); Monocytes Percent Auto 9.5 % (2.6-8.5); Neutrophils Absolute Auto 3.7 K/mm3 (1.3-6.7); Neutrophils Percent Auto 58.6 % (45.5-73.1); Platelet Count Result 178 k/mm3 (150-375); Red Cell Distribution Width 13.3 % (11.5-14.5); White Blood Count 6.3 K/mm3 (4.5-10.0)
[2023-05-17 11:11] LABS: Alanine Aminotransferase 41 U/L (6-35); Albumin Level 4.3 g/dL (3.5-5.1); Alkaline Phosphatase 79 U/L (38-126); Anion Gap 3 mmol/L (8-16); Aspartate Amino Transferase 29 U/L (14-36); Bilirubin,Total 1.1 mg/dL (0.2-1.3); Blood Urea Nitrogen 18 mg/dL (7-17); Calcium 9.5 mg/dL (8.4-10.2); Carbon Dioxide 33 mmol/L (22-30); Chloride 101 mmol/L (98-107); Cholesterol 195 mg/dL (0-200); Estimated Glomerular Filt Rate > 60; Glucose 129 mg/dL (65-110); HDL Direct 58 mg/dL; Potassium 3.9 mmol/L (3.4-5.0); Sodium 137 mmol/L (137-145); Triglycerides 90 mg/dL (<150)
[2023-05-17 11:20] LABS: Hemoglobin A1C 6.5 % (<5.7)
[2023-05-17 11:22] LABS: LDL Cholesterol Direct 104 mg/dL
== END 2023-05-17 10:14 | disposition home or self-care (01) ==
PROVIDERS: PCP Family Medicine; Visit Provider Nurse Practitioner Family
DX: I10 Essential (primary) hypertension (principal); Z13.29 Encounter for screening for other suspected endocrine disorder; Z13.1 Encounter for screening for diabetes mellitus; Z13.220 Encounter for screening for lipoid disorders
CPT/HCPCS: 36415; 80053; 80061; 83036; 84443; 85025

== ENCOUNTER → 2023-08-08 07:57 | Outpatient (CLI) | payer MEDICARE, SELFPAY ==
--- NOTE | ~2023-08-08 | MR_ITS ---
MRI of the right hip Clinical history: Pain Technique: Coronal T1-weighted, T2-weighted, and proton-density fat-sat images, and axial T1-weighted and proton-density fat-sat images were acquired through the pelvis. Coronal T2-weighted images and c oronal, axial, and sagittal proton-density fat-sat images were acquired through the right hip. Findings: There is no fracture, avascular necrosis, or transient osteoporosis of either hip. Bone mar row signals of the proximal femora and visualized pelvic bones are essentially unremarkable. Bilatera l hip joint spaces are preserved. Small right hip joint effusion is present, nonspecific. No right ac etabular labral tear identified. Visualized musculature about the pelvis and right hip is unremarkable. No muscle atrophy or edema antonieta ntified. There is chronic partial tearing of the bilateral enhancing tendon origins, right worse than left. No evidence of bursitis. No soft tissue mass or other fluid collection seen. IMPRESSION: Small right hip joint effusion, nonspecific. Chronic partial tearing of the bilateral hamstring tendon origins, right worse than left. Reviewed, dictated and finalized at location . [employer]
== END ==
PROVIDERS: PCP Orthopaedic Surgery; Visit Provider Orthopaedic Surgery
DX: M25.451 Effusion, right hip (principal); S76.311A Strain of muscle, fascia and tendon of the posterior muscle group at thigh level, right thigh, initial encounter
CPT/HCPCS: 73721

== ENCOUNTER 2023-11-06 11:02 | Outpatient (CLI) | payer MEDICARE, SELFPAY ==
--- NOTE | ~2023-11-06 | XR_ITS ---
Left Hand Technique: PA, oblique, and lateral views were obtained. Clinical History: Pain Findings: No acute fracture or dislocation is seen. There is advanced degenerative change of the seco nd, third, and fifth DIP joints. There is mild degenerative change of the PIP joints. Soft tissues ar e unremarkable. Impression: Degenerative changes, as detailed above, worst in the DIP joints. Reviewed, dictated and finalized at location M. Impression: Degenerative changes, as detailed above, worst in the DIP joints.
--- NOTE | ~2023-11-06 | XR_ITS ---
Right Hand Technique: PA, oblique, and lateral views were obtained. Clinical History: Pain Findings: No acute fracture or dislocation is seen. There is moderate degenerative change of the seco nd, third, and fourth DIP joints. Soft tissues are unremarkable. Impression: Degenerative change, as above. Reviewed, dictated and finalized at location . Impression: Degenerative change, as above.
== END 2023-11-06 11:03 | disposition home or self-care (01) ==
PROVIDERS: PCP Family Medicine; Visit Provider Plastic Surgery
DX: G56.03 Carpal tunnel syndrome, bilateral upper limbs (principal); M19.041 Primary osteoarthritis, right hand; M19.042 Primary osteoarthritis, left hand
CPT/HCPCS: 73130

== ENCOUNTER 2023-12-04 08:45 | Outpatient (CLI) | payer MEDICARE, SELFPAY ==
--- NOTE | 2023-12-04 11:00 | NEURO_ITS ---
Impression: # Complains of pain and numbness of right 4th and 5th fingers. Does have shoulder discomfort as well. # Bilateral ulnar neuropathy across the elbows, right more than left. # No Carpal Tunnel Syndrome. # Needle/EMG exam abnormal. Nerve Conduction Studies Anti Sensory Summary Table Stim Site NR Peak (ms) P-T Amp (?V) Site1 Site2 Delta-P (ms) Dist (cm) Prince (m/s) Left Median Anti Sensory (2-3nd Digit) Wrist 3.3 31.5 Wrist 2-3nd Digit 3.3 14.0 42 Wrist 3.4 32.6 Wrist 2-3nd Digit 3.3 14.0 42 Right Median Anti Sensory (2-3nd Digit) Wrist 3.0 27.6 Wrist 2-3nd Digit 3.0 14.0 47 Wrist 3.0 26.4 Wrist 2-3nd Digit 3.0 14.0 47 Left Radial Anti Sensory (Base 1st Digit) Wrist 2.1 30.2 Wrist Base 1st Digit 2.1 0.0 Right Radial Anti Sensory (Base 1st Digit) Wrist 2.4 18.8 Wrist Base 1st Digit 2.4 0.0 Left Ulnar Anti Sensory (5th Digit) Wrist 2.6 33.3 Wrist 5th Digit 2.6 14.0 54 Right Ulnar Anti Sensory (5th Digit) Wrist 2.5 24.5 Wrist 5th Digit 2.5 14.0 56 Motor Summary Table Stim Site NR Onset (ms) O-P Amp (mV) Site1 Site2 Delta-0 (ms) Dist (cm) Prince (m/s) Left Median Motor (Abd Poll Brev) Wrist 3.4 1.0 Elbow Wrist 5.2 30.0 58 Elbow 8.6 1.7 Right Median Motor (Abd Poll Brev) Wrist 3.4 3.6 Elbow Wrist 5.4 31.0 57 Elbow 8.8 2.9 Left Ulnar Motor (Abd Dig Minimi) Wrist 3.1 3.9 A Elbow Wrist 6.0 31.0 52 A Elbow 9.1 2.0 B Elbow Wrist 3.9 23.0 59 B Elbow 7.0 1.3 Right Ulnar Motor (Abd Dig Minimi) Wrist 3.0 4.1 A Elbow Wrist 6.4 30.0 47 A Elbow 9.4 3.0 B Elbow Wrist 3.8 21.0 55 B Elbow 6.8 3.2 F Wave Studies NR F-Lat (ms) L-R F-Lat (ms) Left Median (Mrkrs) (Abd Poll Brev) 30.00 0.02 Right Median (Mrkrs) (Abd Poll Brev) 29.98 0.02 Left Ulnar (Mrkrs) (Abd Dig Min) 30.84 1.72 Right Ulnar (Mrkrs) (Abd Dig Min) 32.56 1.72 EMG Side Muscle Nerve Root Ins Act Fibs Amp Dur Recrt Comment Right 1stDorInt Ulnar C8-T1 Nml Nml Nml >12ms +2 Right Ext Indicis Radial (Post Int) C7-8 Nml Nml Nml Nml Nml Right Ext Digitorum Radial (Post Int) C7-8 Nml Nml Nml Nml Nml Right BrachioRad Radial C5-6 Nml Nml Nml Nml Nml Right PronatorTeres Median C6-7 Nml Nml Nml Nml Nml Right Abd Poll Brev Median C8-T1 Nml Nml Nml Nml Nml Right ABD Dig Min Ulnar C8-T1 Nml Nml Nml >12ms +2 Left 1stDorInt Ulnar C8-T1 Nml Nml Nml >12ms +1 Left Ext Indicis Radial (Post Int) C7-8 Nml Nml Nml Nml Nml Left Ext Digitorum Radial (Post Int) C7-8 Nml Nml Nml Nml Nml Left BrachioRad Radial C5-6 Nml Nml Nml Nml Nml Left PronatorTeres Median C6-7 Nml Nml Nml Nml Nml Left Abd Poll Brev Median C8-T1 Nml Nml Nml Nml Nml Left ABD Dig Min Ulnar C8-T1 Nml Nml Nml >12ms +1 MTDD
== END 2023-12-04 08:46 | disposition home or self-care (01) ==
PROVIDERS: PCP Family Medicine; Visit Provider Physician Assistant Surgical
DX: G56.03 Carpal tunnel syndrome, bilateral upper limbs (principal); G56.23 Lesion of ulnar nerve, bilateral upper limbs
CPT/HCPCS: 95886; 95911

== ENCOUNTER 2024-03-18 12:20 | Outpatient (CLI) | payer MEDICARE, SELFPAY ==
--- NOTE | ~2024-03-18 | DEXA_ITS ---
Bone Density Report Name: MEGAN AYON Age: 78 Sex: Female Ethnicity: White Date of : 1945 Indication: postmenopausal; screening for osteoporosis; height loss; prior fracture; cancer; hysterectomy; Referring Provider: KELSEY CHRISTINA Study: Bone densitometry was performed. Exam Date: March 18, 2024 Accession number: [id number] Bone Density: Region BMD T-score Z-score Classification AP Spine(L1-L4) 1.288 2.2 4.8 Normal Femoral Neck (Left) 0.820 -0.3 2.0 Normal Total Hip (Left) 1.050 0.9 2.9 Normal Femoral Neck (Right) 0.736 -1.0 1.3 Normal Total Hip (Right) 1.058 0.9 3.0 Normal Femoral Neck Mean 0.778 -0.6 1.6 Normal Total Hip Mean 1.054 0.9 3.0 Normal World Health Organization criteria for BMD impression classify patients as: Normal (T-score at or above -1.0), Osteopenia (T-score between -1.0 and -2.5), or Osteoporosis (T-score at or below -2.5). 10-year Fracture Risk: FRAX not reported because: All T-scores for Spine Total, Hip Total, Femoral Neck at or above -1.0 Treated for osteoporosis Clinical Information Provided by Patient: Has had a low trauma fracture Is being treated for osteoporosis Has used the following medications: Reclast (i.e. zoledronate), Vitamin D Has the following medical conditions: Cancer, Hysterectomy Patient maximum height was 65 Menopause Age: 49 No regular weight bearing exercise Drinks caffeinated beverages Onset of menses at age 10 Number of children 3 Impression: The patient has normal bone mass. The patient has risk factors, including: previous fracture. Discussion: It is important to ask patients whether they are taking their medications and to encourage continued and appropriate compliance with their osteoporosis therapies to reduce fracture risk. It is also important to review their risk factors and encourage appropriate calcium and vitamin D intakes, exercise, fall prevention and other lifestyle measures. Follow-Up: Consider a repeat BMD and Vertebral Fracture Assessment (VFA) exam in 2 years or sooner if medically necessary, to reassess this patient's status. Reported by: Dr. Nelson Turner on 03/18/2024 12:50:00 PM. Reviewed, dictated and finalized at location AKatey MCMANUS
== END 2024-03-18 12:21 | disposition home or self-care (01) ==
PROVIDERS: PCP Internal Medicine Gastroenterology; Visit Provider Nurse Practitioner Family
DX: Z78.0 Asymptomatic menopausal state (principal)
CPT/HCPCS: 77080

== ENCOUNTER 2024-11-16 11:28 | Emergency (ER) | payer MEDICARE, SELFPAY ==
--- NOTE | ~2024-11-16 | XR_ITS ---
EXAMINATION: XR facial bones min 3V DATE: 11/16/2024 11:57 INDICATION: Nose injury. Fall. TECHNIQUE: 4 views of the facial bones were obtained. COMPARISON: None. FINDINGS: Alignment is normal. There are nondisplaced transverse fractures of the nasal bones. IMPRESSION: 1. Nondisplaced fractures of the nasal bones. Reviewed, dictated and finalized at location A.
--- NOTE | ~2024-11-16 | XR_ITS ---
EXAMINATION: XR knee RT 3V DATE: 11/16/2024 11:57 INDICATION: Medial right knee pain TECHNIQUE: Standing AP, lateral and sunrise views of the right knee were obtained COMPARISON: 09/11/2004 FINDINGS: Right total knee arthroplasty with patellar resurfacing which appears well seated in near-anatomic al ignment. No periprosthetic lucency to suggest loosening or infection. No fracture. Small enthesophyte s along the patellar insertion of the distal quadriceps tendon. No right knee joint effusion. IMPRESSION: 1. Expected appearance of a right total knee arthroplasty. No right knee joint effusion or acute osse ous abnormality. Reviewed, dictated and finalized at location B. IMPRESSION: 1. Expected appearance of a right total knee arthroplasty. No right knee joint effusion or acute osseous abnormality.
--- NOTE | 2024-11-16 11:29 | ED_ITS ---
HPI - Wound/Laceration General Chief Complaint: Wound/Laceration Stated Complaint: Injured Nose/Right Knee Source: patient and RN notes reviewed Mode of arrival: ambulatory Limitations: no limitations History of Present Illness HPI narrative: Patient is an 79-year-old female who presents to the [facility] after ground level fall that occurred just prior to arrival. Patient states that she was walking inside when she tripped over a rock. She fell forward, injuring her nose, hitting her forehead, and landing on her right knee. Patient states that her nose and forehead hit a concrete block. She denies loss of consciousness. She is not currently on a blood thinner. She denies any neurological deficits, including weakness, numbness, difficulty walking, difficulty talking. Her gait is stable. She arrive to the [facility] with an abrasion noted to the right side of her nose and abrasion to her right forearm. Bleeding is controlled. She reports tenderness to the right side of her nose and right knee. She is neurovascularly intact distally. Sensation is intact. She is alert and oriented x4. Related Data Home Medications ?Medication ?Instructions ?Recorded ?Confirmed ?Last Taken ?Type clobetasol 0.05 % topical cream 1 applic topical DAILY 04/05/21 05/26/24 Unknown History cholecalciferol (vitamin D3) 50 50 mcg PO DAILY 11/13/22 05/26/24 Unknown History mcg (2,000 unit) capsule hydroxychloroquine 200 mg tablet 200 mg PO BID 05/26/24 05/26/24 Unknown History Allergies Allergy/AdvReac Type Severity Reaction Status Date / Time cephalexin Allergy Mild Diarrhea Verified 05/26/24 12:15 Opioids-Meperidine and Allergy Mild Diarrhea Verified 05/26/24 12:15 Related Penicillins Allergy Unknown Unknown Verified 05/26/24 12:15 amoxicillin Allergy Swelling Verified 05/26/24 12:15 azithromycin Allergy Unknown Verified 05/26/24 12:15 sulfamethoxazole AdvReac Intermediate COULDNT Verified 05/26/24 12:15 WALK trimethoprim AdvReac Intermediate COULDNT Verified 05/26/24 12:15 WALK Review of Systems Review of Systems: CONSTITUTIONAL: Denies fever, chills, or sweats. EYES: Denies visual changes, redness, or discharge. ENT: Denies otalgia and sore throat CARDIOVASCULAR: Denies chest pain, palpitations, or edema. RESPIRATORY: Denies cough or dyspnea. GASTROINTESTINAL: Denies abdominal pain, nausea, vomiting, or diarrhea. GENITOURINARY: Denies dysuria or hematuria. SKIN: Abrasion to nose and right forearm. MUSCULOSKELETAL: Reports right knee pain. NEUROLOGIC: Denies headache, numbness, or weakness. Pertinent positives per HPI. [facility] Past Medical History Medical History Knee pain Cervical arthritis Bilateral hand pain URI (upper respiratory infection) Left leg pain Lump of skin of right upper extremity History of deviated nasal septum Type 2 diabetes mellitus without complication, without long-term current use of insulin Unspecified osteoarthritis, unspecified site History of right breast cancer Chronic low back pain without sciatica Lichen sclerosus of female genitalia Vulva neoplasm Cirrhosis Arthritis Breast cancer RTX Carpal tunnel syndrome Surgical History Surgical History History of appendectomy History of cholecystectomy (~1974) History of foot surgery (~1979) History of carpal tunnel release (~1987) Hx of hysterectomy, total (~10/1992) History of knee replacement 1999 & 2004 History of lumpectomy (~2013) S/P surgery on nasal septum (~1969) History of carpal tunnel surgery History of total right knee replacement History of total left knee replacement H/O: hysterectomy Family History Family History Mother Polymyalgia rheumatica Son Trigeminal nerve disease Sibling Churg-Tung syndrome Mother Aneurysm Mother Heart disease Mother Carotid artery obstruction Other Family history of musculoskeletal disease Social History Social History Smoking status: Never smoker Second hand tobacco smoke exposure: No Alcohol intake: never Substance use: never Substance use type: does not use Do You Feel Safe in your Home?: Yes Lack of Transportation: No Lack of Food: Never True Current Housing: I Have Housing Concerned About Future Housing: No Difficulty Paying Gas/Electric Bills: No Difficulty Paying for Meds: No Currently Unemployed: No Education: High School Diploma/GED Difficulty w/ Childcare or Family Care: No Living arrangements: with family Additional living arrangements comments: Occupation/Education: retired Gender identity (if verbalized by the patient): Female Sexual Orientation (if Verbalized by the Patient): Straight or Heterosexual Spiritual care concerns: No Agree to blood products: Yes Comments At the time of my signature, I reviewed and agree with the nursing past medical, surgical, social, and family history. There is no relevant family history pertinent to the patient complaint. Exam Narrative: GENERAL: This is a well-nourished, well-developed patient, in no apparent distress. HEAD: normocephalic, atraumatic. EYES: PERRL. Sclera clear/white. Vision is grossly intact. EARS: External ears normal. Hearing grossly intact. NOSE: External nose normal with no obvious nasal discharge, nares without redness, no rhinorrhea. THROAT: Mucous membranes moist, posterior pharynx clear. NECK: Neck supple, non-tender without lymphadenopathy, masses or thyromegaly. CARDIOVASCULAR: Regular rate and rhythm without murmurs, gallops, or rubs. RESPIRATORY: Clear to auscultation. Breath sounds equal bilaterally. No wheezes, rales, or rhonchi. GASTROINTESTINAL: Abdomen soft, non-tender, nondistended. Bowel sounds are active. No hepato-splenomegaly, or palpable masses. No guarding. SKIN: Nasal abrasion with no active bleeding. Abrasion to right forearm with no active bleeding. NEURO: awake, alert, and oriented to person, place and time. There were no obvious focal neurologic abnormalities. EXTREMITIES: Right knee tenderness. Contusion noted. Full range of motion intact. She is neurovascularly intact. Sensation is intact. No obvious swelling or deformity. BACK: Nontender without deformity or crepitance. No flank tenderness. Course Course Level of Care: Express Care Visit Vital Signs Vital signs: Vital Signs Temperature 96.6 F L 11/16/24 11:37 Pulse Rate 67 11/16/24 11:37 Respiratory Rate 16 11/16/24 11:37 Blood Pressure 173/66 H 11/16/24 11:37 Pulse Oximetry 100 11/16/24 11:37 Temperature 96.6 F L 11/16/24 11:37 Pulse Rate 67 11/16/24 11:37 Respiratory Rate 16 11/16/24 11:37 Blood Pressure 173/66 H 11/16/24 11:37 Pulse Oximetry 100 11/16/24 11:37 Reviewed MDM - Wound/Laceration MDM Narrative Medical decision making narrative: Use the RICE method at home. May take ibuprofen and/or Tylenol if needed. If symptoms persist in 1 week after conservative treatment, follow-up with specialist. Differential Diagnosis Differential diagnosis: Likely laceration, abrasion, avulsion of skin and other (nasal fracture, patellar fracture, knee contusion, nasal contusion, facial contusion) Imaging Data Attestation: I personally reviewed and interpreted this imaging study as follows: Radiologist's impression: Close Knee X-Ray (Signed) Aaron Reyna - 11/16/24 Launch?[facility] [place] [id number] [facility] [place] [address] XRay Report Signed Patient: Radha Harrison : 1945 MR#: [id number] Age: 79 Acct:[id number] Loc: [facility] ADM Date: 11/16/24Attending Dr: Ordering Physician: Belinda Nicole APRN Date of Service: 11/16/24 Procedure(s): XR knee RT 3V Accession Number(s): [id number] cc: Belinda Nicole APRN; LABORATORY COORDINATOR PHYSICIAN~ EXAMINATION: XR knee RT 3V DATE: 11/16/2024 11:57 INDICATION: Medial right knee pain TECHNIQUE: Standing AP, lateral and sunrise views of the right knee were obtained COMPARISON: 09/11/2004 FINDINGS: Right total knee arthroplasty with patellar resurfacing which appears well seated in near-anatomic alignment. No periprosthetic lucency to suggest loosening or infection. No fracture. Small enthesophytes along the patellar insertion of the distal quadriceps tendon. No right knee joint effusion. IMPRESSION: 1. Expected appearance of a right total knee arthroplasty. No right knee joint effusion or acute osseous abnormality. Reviewed, dictated and finalized at location B. Please be advised this is a medical document. It is intended for [id number]-kylt communication. It is written in medical language and may contain unfamiliar abbreviations or verbiage. Medical documents are intended to carry relevant information, facts as evident, and the clinical opinion of the practitioner at the time of the encounter. This report may have been done utilizing a voice recognition system. Attempts have been made to correct errors. However, there may be uncorrected grammatical, spelling, and recognition errors present. The file time of this note does not necessarily represent the time of service. Dictated By: Aaron Reyna MD 11/16/24 1159 Signed By: <Electronically signed by Aaron Reyna MD in [place]> 11/16/[address] [address] XRay Report Signed Patient: Radha Harrison : 1945 MR#: [id number] Age: 79 Acct:[id number] Loc: [facility] ADM Date: 11/16/24Attending Dr: Ordering Physician: Belinda Nicole APRN Date of Service: 11/16/24 Procedure(s): XR facial bones min 3V Accession Number(s): [id number] cc: Belinda Nicole APRN; LABORATORY COORDINATOR PHYSICIAN~ EXAMINATION: XR facial bones min 3V DATE: 11/16/2024 11:57 INDICATION: Nose injury. Fall. TECHNIQUE: 4 views of the facial bones were obtained. COMPARISON: None. FINDINGS: Alignment is normal. There are nondisplaced transverse fractures of the nasal bones. IMPRESSION: 1. Nondisplaced fractures of the nasal bones. Reviewed, dictated and finalized at location A. Please be advised this is a medical document. It is intended for dhgm-wf-yiad communication. It is written in medical language and may contain unfamiliar abbreviations or verbiage. Medical documents are intended to carry relevant information, facts as evident, and the clinical opinion of the practitioner at the time of the encounter. This report may have been done utilizing a voice recognition system. Attempts have been made to correct errors. However, there may be uncorrected grammatical, spelling, and recognition errors present. The file time of this note does not necessarily represent the time of service. Dictated By: Mookie Ricks MD 11/16/24 1200 Signed By: <Electronically signed by Mookie Ricks MD in OV> 11/16/24 1202 Critical Care Time Critical Care Time Critical Care Time: No Discharge Plan Discharge Clinical Impression: Fracture of nasal bones Qualifiers: Encounter type: initial encounter Fracture type: closed Qualified Code(s): S02.2XXA - Fracture of nasal bones, initial encounter for closed fracture Contusion of right knee Qualifiers: Encounter type: initial encounter Qualified Code(s): S80.01XA - Contusion of right knee, initial encounter Abrasion of nose Qualifiers: Encounter type: initial encounter Qualified Code(s): S00.31XA - Abrasion of nose, initial encounter Patient Disposition: Home, Self-Care Condition: Stable Instructions: Nasal Fracture (ED), Contusion in Adults (ED), P.R.I.C.E. Treatment (ED) Additional Instructions: Use the RICE method at home. May take ibuprofen and/or Tylenol if needed. If symptoms persist in 1 week after conservative treatment, follow-up with specialist. Patient Language: Arabic Prescriptions: No Action cholecalciferol (vitamin D3) 50 mcg (2,000 unit) capsule 50 mcg PO DAILY (DME) Blood Glucose Test Strip See Rx Instructions .ROUTE .MEDSUPPLY Qty: 100 5RF Rx Instructions: check blood sugars t.i.d. a.c. As directed (DME) lancets 33 gauge misc See Rx Instructions .ROUTE .MEDSUPPLY Qty: 100 5RF Rx Instructions: check blood sugars t.i.d. a.c. As directed hydroxychloroquine 200 mg tablet 200 mg PO BID clobetasol 0.05 % cream 1 applic topical DAILY glimepiride 1 mg tablet 1 mg PO QAM Qty: 90 1RF Rx Instructions: administer with breakfast Follow-up/Referrals: Socorro Cantor MD [Physician] - Gaurav Gu MD [Physician] - UNKNOWN,DOCTOR [Non-Staff] - Time of Disposition: 12:09
[2024-11-16 11:37] VITALS: BP 173/66; PULSE 67; RESP 16; TEMP 35.9; O2SAT 100
== END 2024-11-16 12:12 | disposition home or self-care (01) ==
PROVIDERS: Emergency Provider Nurse Practitioner
DX: S02.2XXA Fracture of nasal bones, initial encounter for closed fracture (principal); W18.09XA Striking against other object with subsequent fall, initial encounter; S80.01XA Contusion of right knee, initial encounter; S00.31XA Abrasion of nose, initial encounter; E11.9 Type 2 diabetes mellitus without complications; Z79.84 Long term (current) use of oral hypoglycemic drugs; K74.60 Unspecified cirrhosis of liver; L90.0 Lichen sclerosus et atrophicus; M47.812 Spondylosis without myelopathy or radiculopathy, cervical region; Z85.3 Personal history of malignant neoplasm of breast; Z96.653 Presence of artificial knee joint, bilateral; Z85.44 Personal history of malignant neoplasm of other female genital organs
CPT/HCPCS: 70150; 73562; 99214; G0463

== ENCOUNTER 2024-12-08 15:56 | Outpatient (CLI) | payer MEDICARE, SELFPAY ==
--- NOTE | ~2024-12-08 | US_ITS ---
EXAMINATION: US carotid duplex BI DATE: 12/08/2024 16:40 INDICATION: Carotid atherosclerosis. Other specified symptoms and signs involving the circulatory sys tem. TECHNIQUE: Grayscale, color Doppler, and pulsed Doppler images of the cervical carotid arteries were obtained. The degree of vessel stenosis is placed in one of the following categories: normal, <50%, 5 0-69%, >=70% but less than near-occlusion, near-occlusion, or total occlusion. Note that percent sten osis relative to normal distal artery lumen diameter is indirectly measured from velocity measurement s as described by Hill, et al. Radiology 2003; 229:340-346. COMPARISON: 05/07/2022 FINDINGS: RIGHT: The right common carotid artery (CCA) peak systolic velocity (PSV) is 93 cm/s. The right internal car otid artery (ICA) PSV is 87 cm/s. The right ICA end-diastolic velocity (EDV) is 15 cm/s. The right IC A/CCA PSV ratio is 0.9. Grayscale and color Doppler images yield an estimate of <50% diameter reducti on from plaque in the ICA. The external carotid artery (ECA) PSV is 108 cm/s. There is antegrade flow in the right vertebral artery. LEFT: The left CCA PSV is 107 cm/s. The left ICA PSV is 91 cm/s. The left ICA EDV is 21 cm/s. The left ICA/ CCA PSV ratio is mild. Grayscale and color Doppler images yield an estimate of <50% diameter reductio n from plaque in the ICA. The ECA PSV is 76 cm/s. There is antegrade flow in the left vertebral arter y. IMPRESSION: 1. <50% stenosis in the right internal carotid artery. 2. <50% stenosis in the left internal carotid artery. Reviewed, dictated and finalized at location A.
--- OUTSIDE RECORDS SUMMARY | 2024-12-08 17:56 | XMS_ITS | Clinical Summary ---
Author Organization [facility] Address [address] [place] [address] Care Team Providers Care Salesperson New Cars Name Role Phone Jacque Casey MD Primary Care Provider David Young MD Unavailable [phone] Allergies Active Allergy Reactions Criticality Noted Date Comments Azithromycin Diarrhea,Rash,Stomac h upset,Unknown Medium 03/05/2018 Cephalexin Diarrhea Low 11/30/2023 Penicillins Swelling High 08/22/2017 Sulfa (Sulfonamide Antibiotics) Unknown 06/04/2017 Sulfamethoxazole-Trimethopri m Swelling,Unknown Medium 05/22/2024 Medications glimepiride (AMARYL) 1 mg tablet Take 1 tablet (1 mg total) by mouth daily before breakfast 4 Active hydroxychloroquine (PLAQUENIL) 200 mg tablet Take 1 tablet (200 mg total) by mouth 2 (two) times a day 4 Active acetaminophen (TYLENOL) 500 mg tablet Take 1-2 tablets (500-1,000 mg total) by mouth every 6 (six) hours as needed for pain 30 tablet 4 Active clobetasoL (TEMOVATE) 0.05 % creamIndications:Audra 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,DENIS III (vulvar intraepithelial neoplasia III) Apply topically 2 (two) times a week Apply thin film to vulva 2-3x/week prn 45 g 3 4 Active benzonatate (TESSALON) 100 mg capsuleIndications: Cough Take 1 capsule (100 mg total) by mouth 3 (three) times a day as needed for cough 21 capsule 5 Active albuterol HFA (PROVENTIL HFA,VENTOLIN HFA,PROAIR HFA) 90 mcg/actuation inhaler Inhale 2 puffs every 6 (six) hours as needed for wheezing or shortness of breath 1 each 5 Active Active Problems Problem Noted Date Diagnosed Date Torticollis, acute 11/30/2023 Cervical spondylosis 11/30/2023 Peripheral visual field defect of both eyes 08/2022 Myogenic ptosis of eyelid of both eyes 3 Osteoarthritis of both knees 07/04/2023 Bleeding esophageal varices 06/19/2022 Overview (06/19/2022): Added automatically from request for surgery [id number] Arthralgia of both knees 10/13/2021 Irritable bowel syndrome with diarrhea 1 Enthesopathy of knee 07/13/2020 Osteoarthritis of knee 07/13/2020 Encounter for screening mamm ogram for malignant neoplasm of breast 03/15/2020 Hepatic cirrhosis ([facility]/HCC) 07/19/2019 History of breast cancer 03/05/2018 Malignant neoplasm of lower- outer quadrant of right breast of female, estrogen receptor positive 04/04/2015 Lichen sclerosus et atrophicus 06/09/2013 Arthritis 07/05/2010 Resolved Problems Problem Noted Date Diagnosed Date Resolved Date Infiltrating ductal carcinom a of female breast (CMS/HCC) 04/05/2015 10/10/2021 Estrogen receptor positive status (ER+) 04/04/2015 10/10/2021 Encounters Date Type Department Care Team Description 09/18/2024 10:45 AM SAW HANDLE ASSEMBLER Ancillary Procedure [facility] Imaging at [address] [id number] Acute cough 09/17/2024 12:52 PM SAW HANDLE ASSEMBLER - 09/17/2024 11:59 PM SAW HANDLE ASSEMBLER Hospital Encounter [address] [address] Acute cough Discharge Disposition: Discharge to home or self care 09/17/2024 11:45 AM SAW HANDLE ASSEMBLER Office Visit [facility] at [address] [address] Nan Jesus PA Acute cough (Primary Dx) from Last 3 Months Immunizations Immunization Administration Dates Next Due Hep B Vaccine 08/23/2020,03/20/2020,02/18/2020 Influenza, Quadrivalent, Hig h Dose, Preservative Free, Intrr 04/29/2020,06/04/2017 Influenza, Trivalent, High D ose, Split, Preservative Free, Intramuscular 04/29/2020,06/05/2018,06/04/2017 Pneumococcal Conjugate PCV 13 08/31/2015 Pneumococcal Polysaccharide PPV23 10/19/2010 Surgical History Surgery Date Site/Laterality Comments CHOLECYSTECTOMY 08/19/1974 - 08/18/1975 Cholecystectomy KNEE ARTHROPLASTY 08/19/2004 - 08/18/2005 Bilateral Knee replacement 2004 , 1999 HYSTERECTOMY 08/19/1992 - 08/18/1993 Hysterectomy US UNLISTED PROCEDURE LYMPH SYSTEM 03/01/2014 N/A BREAST BIOPSY 2013 2PIOS RT BREAST BIOPSY NEG LEFT BREAST LUMPECTOMY RT 2013 CARPAL TUNNEL RELEASE 08/19/1987 - 08/18/1988 Bilateral FOOT SURGERY 08/19/1979 - 08/18/1980 BLEPHAROPTOSIS REPAIR 09/06/2023 Bilateral FLUORO GUIDED ASPIRATION OR INJECTION LARGE JOINT BILATERAL 09/25/2023 Bilateral Medical History Medical History Date Comments Hx Other Medical 1999 knee replacemen t bilateral Hx Other Medical 1969 nose surgery Hx Other Medical 1969 foot surgery Arthritis Arthritis History of radiation therapy 201 4 Breast cancer (HCC) RT 2013 Liver cirrhosis (HCC) Type 2 diabetes mellitus (HCC) Family History Medical History Relation Name Comments Breast cancer Cousin 1 Thyroid cancer Cousin 2 Heart disease Father Heart disease Maternal Grandfather Heart disease Mother Anesthesia problems Neg Hx Endometrial cancer Neg Hx Ovarian cancer Neg Hx Relation Name Status Comments Cousin 1 Cousin 2 Father Maternal Grandfather Mother Social History Tobacco Use Types Packs/Day Years Used Date Smoking Tobacco: Never Smokeless Tobacco: Never Tobacco Cessation:Counseling Given: Not Answered AUDIT-C Answer Date Recorded Q1: How often do you have a drink containing alcohol? Never 09/06/2023 Q2: How many drinks containi ng alcohol do you have on a typical day when you are drinking? Patient does not drink Q3: How often do you have si x or more drinks on one occasion? Never 09/06/2023 Personal Safety Answer Date Recorded Have you ever been in or are you currently in a harmful physical or emotional relationship or is someone making you feel afraid or unsafe? Denies 05/01/2024 Comments No Sex and Gender Information Value Date Recorded Sex Assigned at Not on file Legal Sex Female 12:43 AM SAW HANDLE ASSEMBLER Gender Identity Female 01/02/2021 4:46 PM CDT Sexual Orientation Straight 01/02/2021 4: 46 PM CDT Obstetrics History Para Term AB IAB SAB Ectopic Multiple Livin g Live Births 4 3 3 1 1 3 3 Date Outcome GA Total Labor Labor/2nd/3rd Weight Sex Type Anes PTL Kary A1 A5 Name Clin 1968 Term F Vag-S pont Living 1969 SAB 1970 Term M Vag-S pont Living 1971 Term M Vag-S pont Living Last Filed Vital Signs Vital Sign Reading Time Taken Comments Blood Pressure 172/81 09/17/2024 12:07 PM SAW HANDLE ASSEMBLER Pulse 86 09/17/2024 12:07 PM SAW HANDLE ASSEMBLER Temperature 37.6 C (99.7 F) 09/17/2024 12:07 PM SAW HANDLE ASSEMBLER Respiratory Rate 20 09/17/2024 12:0 7 PM SAW HANDLE ASSEMBLER Oxygen Saturation 97% 09/17/2024 12: 07 PM SAW HANDLE ASSEMBLER Inhaled Oxygen Concentration - - Weight 114.8 kg (253 lb 1.6 oz) 025 12:07 PM SAW HANDLE ASSEMBLER Height 160 cm (5' 2.99 ) 09/17/2024 12: 07 PM SAW HANDLE ASSEMBLER Body Mass Index 44.85 09/17/2024 12:07 PM SAW HANDLE ASSEMBLER Plan of Treatment Health Maintenance Due Date Last Done Comments Albumin Creatinine Ratio, Urine 1944 Depression Screening 1944 Osteoporosis Screening-Bone Density Scan 1944 Dilated Eye Exam 1944 Foot Exam 1944 Lipid Panel 1944 DTaP/Tdap/Td Vaccine (1 - Tdap) 1955 Zoster Vaccine (1 of 2) 1963 Well Visit 65+ 2009 Covid-19 Vaccine (3 - Modern a risk series) 12/05/2020 11/07/2020, 10/06/2020 Influenza Vaccine (#1) 2024 0, 04/29/2020, 06/05/2018, Additional history exists Fall Risk Assessment 09/06/2024 09/06/2023 Hemoglobin A1C 03/08/2025 09/08/2024 eGFR 09/08/2025 09/08/2024, 02/16, 08/16/2023, Additional history exists Pneumococcal vaccine 65+ Completed 08/31/2015, 10/2010 Procedures Procedure Name Priority Date/Time Associated Diagnosis Comments XR CHEST PA LATERAL 2 VIEWS Schedule MANGO, Read MANGO (Appt Today, Awaiting Results) 09/18/2024 10:41 AM SAW HANDLE ASSEMBLER Acute cough INFLUENZA A/B, RSV, AND COVID-19 PCR Routine 09/17/2024 12:52 PM SAW HANDLE ASSEMBLER Acute cough THROAT CULTURE Routine 09/17/2024 12:52 PM SAW HANDLE ASSEMBLER Acute cough POCT RAPID RSV (CPT 77536) Routine 09/17/2024 12:39 PM SAW HANDLE ASSEMBLER Acute cough POC INFLUENZA A/B, COVID-19 ANTIGEN Routine 09/17/2024 12:39 PM SAW HANDLE ASSEMBLER Acute cough EGFR Routine 09/08/2024 6:54 AM SAW HANDLE ASSEMBLER Hepatic cirrhosis, unspecified hepatic cirrhosis type, unspecified whether ascites present (HCC) HEMOGLOBIN A1C Routine 09/08/2024 6:54 AM SAW HANDLE ASSEMBLER Hepatic cirrhosis, unspecified hepatic cirrhosis type, unspecified whether ascites present (HCC) Type 2 diabetes mellitus without complication, unspecified whether halfway insulin use (HCC) from Last 3 Months or Most Recently Relevant to Health Maintenance Results * XR Chest Pa Lateral 2 Views (09/18/2024 10:41 AM SAW HANDLE ASSEMBLER) Anatomical Region Laterality Modality Body, Chest N/A Digital Radiogra phy 09/18/2024 10:5 0 AM SAW HANDLE ASSEMBLER Narrative 09/18/2024 10:53 AM SAW HANDLE ASSEMBLER EXAM DESCRIPTION: XR CHEST PA LATERAL 2 VIEWS REASON FOR STUDY: cough Pt complains of cough x 2 days. Flu A+ x 1 day ago. No chest surgery. No asthma,heart disease,cancer,copd. No smoking hx TECHNIQUE: 2 04/07/2014 radiographic view(s) of the chest. COMPARISON: 04/07/2014 FINDINGS: LUNGS: No pneumonic consolidation or pulmonary edema is seen. No evidence of pleural effusion or pneumothorax. Calcified granuloma at the right lung apex is unchanged. Calcified granuloma in the left upper lobe is unchanged. Appearance of the lungs is unchanged from 04/07/2014. HEART/MEDIASTINUM: Thoracic aortic arch atherosclerosis. Unchanged heart size and cardiomediastinal contours. LINES/TUBES: None. BONES: No acute displaced fracture or aggressive bone lesion is seen. Degenerative changes are seen at the shoulders Surgical clips in the upper abdomen. No gross acute finding in the visualized upper abdomen. IMPRESSION: No acute cardiopulmonary findings. THIS IS AN ELECTRONICALLY VERIFIED FINAL REPORT 09/18/2024 10:53 AM - Electronically signed by Rizwan Adams M.D. MZ T: Report ID: [id number] Reading Location: [place] [address] Procedure Note Rizwan Adams MD - 09/18/2024 EXAM DESCRIPTION: XR CHEST PA LATERAL 2 VIEWS REASON FOR STUDY: cough Pt complains of cough x 2 days. Flu A+ x 1 day ago. No chest surgery. No asthma,heart disease,cancer,copd. No smoking hx TECHNIQUE: 2 04/07/2014 radiographic view(s) of the chest. COMPARISON: 04/07/2014 FINDINGS: LUNGS: No pneumonic consolidation or pulmonary edema is seen.No evidence of pleural effusion or pneumothorax. Calcified granuloma at the right lung apex is unchanged. Calcified granuloma in the left upper lobeis unchanged. Appearance of the lungs is unchanged from 04/07/2014. HEART/MEDIASTINUM: Thoracic aortic arch atherosclerosis. Unchanged heart size and cardiomediastinal contours. LINES/TUBES: None. BONES: No acute displaced fracture or aggressive bone lesion is seen. Degenerative changes are seen at the shoulders Surgical clips in the upper abdomen. No gross acute finding in thevisualized upper abdomen. IMPRESSION: No acute cardiopulmonary findings. THIS IS AN ELECTRONICALLY VERIFIED FINAL REPORT 09/18/2024 10:53 AM - Electronically signed by Rizwan Adams M.D. MZ T: Report ID: [id number] Reading Location: [place] [address] Nan [facility] IMG XR PROCEDURES Final Result * (ABNORMAL) Influenza A/B, RSV, and COVID-19 PCR Nasopharyngeal (09/17/2024 12:52 PM SAW HANDLE ASSEMBLER) COVID-19 RNA Negative Negative Influenza A RNA Positive(A) Negative [facility] Influenza B RNA Negative Negative [facility] RSV RNA Negative Negative [facility] Comment: Interpretive data: Testing performed by [facility]. This test is performed using the Neema Xpert Xpress CoV-2/Flu/RSV plus assay. This is a multiplex, real-time reverse transcriptase PCR assay intended for the qualitative detection of nucleic acid from SARS-CoV-2, influenza A, influenza B, and respiratory syncytial virus. This assay has been cleared by the [place] Food and Drug administration. The performance characteristics have been verified by the [facility]. Results must be considered in the clinical context, and a negative result does not rule out infection. Interpretive Data last revised 2023 Nasopharyngeal 09/17/2024 12 :52 PM SAW HANDLE ASSEMBLER 09/17/2024 6:38 PM SAW HANDLE ASSEMBLER Narrative [facility] - 09/17/2024 8:04 PM SAW HANDLE ASSEMBLER Is the Patient experiencing symptoms consistent with COVID?->Yes Nan [facility] LAB MICROBIOLOGY - GENER AL ORDERABLES Final Result [facility] [address] Department [place] [address] [place] * Throat culture Throat (09/17/2024 12:52 PM SAW HANDLE ASSEMBLER) Report Final Report: No growth of pathogens. Comment:Testing performed by : [facility], [address] [place]., [address] Throat 09/17/2024 12:5 2 PM SAW HANDLE ASSEMBLER 09/17/2024 8:53 PM SAW HANDLE ASSEMBLER Narrative [facility] - 09/18/2024 4:52 PM SAW HANDLE ASSEMBLER Testing performed by [facility] Microbiology Laboratory ([phone]). Nan [facility] LAB MICROBIOLOGY - GENER AL ORDERABLES Final Result [facility] [address] Department [place] [address] * POC Influenza A/B, COVID-19 antigen (09/17/2024 12:39 PM SAW HANDLE ASSEMBLER) [facility] Influenza A Ag, POC Negative Negative [facility] Influenza B Ag, POC Negative Negative [facility] COVID-19 Ag POC Presumptive Negative Presumptive Negative, Invalid [facility] Nasal 09/17/2024 12:3 9 PM SAW HANDLE ASSEMBLER Nan [facility] POINT OF CARE TEST ORDER WEI Final Result Performing Organization Address City/[facility]/ZIP Co de Phone Number [facility] [address] [place] [address] * POCT rapid RSV (09/17/2024 12:39 PM SAW HANDLE ASSEMBLER) [facility] Rapid RSV, POC Negative Negative Lot Number 0 QC Control Line Acceptable Swab 09/17/2024 12:3 9 PM SAW HANDLE ASSEMBLER Nan [facility] POINT OF CARE TEST ORDER WEI Final Result * eGFR (09/08/2024 6:54 AM SAW HANDLE ASSEMBLER) [facility] eGFR 62 >=60 mL/min/1. 73 m2 Comment: Interpretive Data Reference Interval Normal >/= 90 mL/min/1.73m2 Mildly decreased* 60 - 89 mL/min/1.73m2 Mildly to moderately decreased 45 - 59 mL/min/1.73m2 Moderately to severely decreased 30 - 44 mL/min/1.73m2 Severely decreased 15 - 29 mL/min/1.73m2 Kidney Failure < 15 mL/min/1.73m2 *Relative to young adult level Estimated glomerular filtration rate is determined by the 2020 CKD-EPI equation recommended by the National Kidney Foundation (A Unifying Approach to GFR Estimation: Recommendations of the NKF-ASK Task Force on Reassessing the Inclusion of Race in Diagnosing Kidney Disease, JASN 2020). The CKD-EPI equation should not be used for patients with unstable renal function and has not been validated in children and those over 70. Current interpretive data was last reviewed 2021. Blood 09/08/2024 6:54 AM SAW HANDLE ASSEMBLER 09/08/2024 7:04 AM SAW HANDLE ASSEMBLER Kim Garcia MD LAB BLOOD ORDERABLES Final Result Performing Organization Address [facility] de Phone Number [facility] [place] [address] * (ABNORMAL) Hemoglobin A1c (09/08/2024 6:54 AM SAW HANDLE ASSEMBLER) Hgb A1C 6.6(H) 4.0 - 5.6 % Estimated Average Glucose 143 mg/dL [facility] Comment: The ADA recommends reporting an estimated Average Glucose (eAG) with all Hemoglobin A1c results using the equation derived from a study of 507 normal and diabetic adults. Minority populations were underrepresented and children were not included. (Diabetes Care 2020; 43(S1): S66-S76). The eAG is not equivalent to a fasting glucose. Blood 09/08/2024 6:54 AM SAW HANDLE ASSEMBLER 09/08/2024 7:04 AM SAW HANDLE ASSEMBLER Kim Garcia MD LAB BLOOD ORDERABLES Final Result Performing Organization Address City/[facility]/ZIP Co de Phone Number [facility] [place] [address] from Last 3 Months or Most Recently Relevant to Health Maintenance Insurance [facility] MEDICARE ADVANTAGE [facility] Address: [address] [address] [place] [address] MEDICARE [facility] MEDICARE ADVANTAGE [facility] Address: [address] [address] [place] [address] [facility] MEDICARE [facility]AGE [facility] Address: [address] [address] [place] [address] Advance Directives For more information, please contact: [phone] Documents on File Type Date Recorded Patient Working Manager Expl anation Power of Pick Pack Worker 09/06/2023 9:01 AM * Full Code (Latest Code Status on File) Date Activated Date Inactivated Comments 09/12/2022 8:50 AM 09/12/2022 3:57 PM Care Teams Salesperson New Cars Relationship Specialty Start Date End Date Jacque Casey MD PCP - General Family Practice 03/04/18 David Young MD [address] DEPT OPHTHALMOLOGY, [address] [address] Surgeon Ophthalmology 09/06/23
--- OUTSIDE RECORDS SUMMARY | 2024-12-08 17:56 | XMS_ITS | Encounter Summary ---
Author Organization [facility] Address [address] [place] [address] Phone Care Team Providers Care Kids Club Attendant Name Role Phone Jacque Casey MD Primary Care Provider David Young MD Unavailable [phone] Encounter Details Date Type Department Care Team (Late st Contact Info) Description 10/15/2023 Documentation [facility] Gastroenterology [address] [facility] [facility] 12th [place] [address] [place] [address] Jo Garg LPN Social History Tobacco Use Types Packs/Day Years Used Date Smoking Tobacco: Never Smokeless Tobacco: Never AUDIT-C Answer Date Recorded Q1: How often [...] making you feel afraid or unsafe? Denies 09/06/2023 Comments No Sex and Gender Information Value Date Recorded Sex Assigned at Not on file Legal Sex Female 12:43 AM COMPUTER AIDE Gender Identity Female 01/02/2021 4:46 PM CDT Sexual Orientation Straight 01/02/2021 4: 46 PM CDT documented as of this encounter Plan of Treatment Not on file documented as of this encounter Visit Diagnoses Not on filedocumented in this encounter Additional Health Concerns Infection Onset Date Last Indicated Resolved Time COVID: Suspected 04/30/2024 04/30/2024 04/30/2024 11:16 AM CDT COVID: Suspected 04/30/2024 04/30/2024 04/30/2024 3:51 PM CDT COVID: Suspected 09/17/2024 09/17/2024 09/17/2024 12:40 PM COMPUTER AIDE COVID: Suspected 09/17/2024 09/17/2024 09/17/2024 8:05 PM COMPUTER AIDE Influenza, adult 09/17/2024 09/17/2024 09/24/2024 3:05 AM COMPUTER AIDE documented as of this encounter Care Teams Kids Club Attendant Relationship Specialty Start Date End Date Jacque Casey MD PCP - General Family Practice 03/04/18 David Young MD [address] DEPT OPHTHALMOLOGY, [address] [address] Surgeon Ophthalmology 09/06/23 documented as of this encounter
--- OUTSIDE RECORDS SUMMARY | 2024-12-08 17:56 | XMS_ITS | Encounter Summary ---
Author Organization [facility] Address [address] [place] [address] Phone Care Team Providers Care Retail Sales Associate Bilingual Name Role Phone Jacque Casey MD Primary Care Provider Joellen Wall NP Unavailable David Young MD Unavailable [phone] Encounter Details Date Type Department Care Team (Latest Contact Info) Description 12/08/2020 Orders Only [facility] Scanning, Provider Social History Tobacco Use Types Packs/Day Years Used Date Smoking Tobacco: Never Smokeless Tobacco: Never Comments No Sex and Gender Information Value Date Recorded Sex Assigned at Not on file Legal Sex Female 12:43 AM ENROBING MACHINE CORDER Gender Identity Female 01/02/2021 4:46 PM CDT Sexual Orientation Straight 01/02/2021 4: 46 PM CDT documented as of this encounter Plan of Treatment Not on file documented as of this encounter Procedures Procedure Name Priority Date/Time Associated Diagnosis Comments SCAN - RADIOLOGY/IMAGING 12/08/2020 documented in this encounter Results * SCAN - RADIOLOGY/IMAGING (12/08/2020) Anatomical Region Laterality Modality Other us Provider Scanning Edited Result - Final documented in this encounter Visit Diagnoses Not on filedocumented in this encounter Additional Health Concerns Infection Onset Date Last Indicated Resolved Time COVID: Suspected 04/30/2024 04/30/2024 04/30/2024 11:16 AM CDT COVID: Suspected 04/30/2024 04/30/2024 04/30/2024 3:51 PM CDT COVID: Suspected 09/17/2024 09/17/2024 09/17/2024 12:40 PM ENROBING MACHINE CORDER COVID: Suspected 09/17/2024 09/17/2024 09/17/2024 8:05 PM ENROBING MACHINE CORDER Influenza, adult 09/17/2024 09/17/2024 09/24/2024 3:05 AM ENROBING MACHINE CORDER documented as of this encounter Care Teams Retail Sales Associate Bilingual Relationship Specialty Start Date End Date Jacque Casey MD PCP - General Family Practice 03/04/18 Joellen Wall NP [address] [facility] [address] [place] [address] Nurse Practitioner Medical Oncology 10/14/20 07/07/21 David Young MD [address] DEPT OPHTHALMOLOGY, [facility] [address] [place] [address] Surgeon Ophthalmology 09/06/23 documented as of this encounter
--- OUTSIDE RECORDS SUMMARY | 2024-12-08 17:56 | XMS_ITS | Clinical Summary ---
Author Organization [facility] Address [address] [facility] [place] [address] Phone Care Team Providers Care Assistant Manager Pt Name Role Phone Unavailable Primary Care Provider Unavailabl e Allergies Active Allergy Reactions Criticality Noted Date Comments Azithromycin Unknown 05/22/2024 Penicillin Unknown 05/22/2024 Sulfamethoxazole-Trimethoprim Unknown 2023 Medications clobetasoL (TEMOVATE) 0.05 % Cream Apply to affected area 2 times daily. As needed Active hydroxychloroqu ine (PLAQUENIL) 200 mg tablet Take 200 mg by mouth daily. 2x daily Active glimepiride (AMARYL) 1 mg tablet Take 1 mg by mouth daily with breakfast. 1x daily Active Active Problems No known active problems Encounters Date Type Department Care Team Description 11/18/2024 Telephone [facility] EAR, NOSE AND THROAT [address] [phone] Diego Kaplan MD need XR facial bones images 11/18/2024 [facility] EAR, NOSE AND THROAT [address] [phone] Diego Kaplan MD Needs Appointment 11/17/2024 [facility] EAR, NOSE AND THROAT [address] [phone] Diego Kaplan MD Needs Appointment 11/17/2024 [facility] EAR, NOSE AND THROAT [address] [phone] Mookie Reyes MD Needs Appointment 10/07/2024 External Device Data [facility] Provider, Abstract 09/16/2024 External Device Data [facility] Provider, Abstract 09/10/2024 External Device Data [facility] Provider, Abstract from Last 3 Months Social History Tobacco Use Types Packs/Day Years Used Date Smoking Tobacco: Never Assessed Comments Unknown Sex and Gender Information Value Date Recorded Sex Assigned at Not on file Legal Sex Female 2:44 PM CDT Gender Identity Not on file Sexual Orientation Not on file Last Filed Vital Signs Vital Sign Reading Time Taken Comments Blood Pressure - - Pulse - - Temperature - - Respiratory Rate 16 07/07/2024 9:12 AM COMMUNICATION ENGINEER Oxygen Saturation - - Inhaled Oxygen Concentration - - Weight 110.7 kg (244 lb) 07/07/2024 9:12 AM COMMUNICATION ENGINEER Height 160 cm (5' 3 ) 07/07/2024 9:12 AM COMMUNICATION ENGINEER Body Mass Index 43.22 07/07/2024 9:12 AM COMMUNICATION ENGINEER Plan of Treatment Upcoming Encounters Date Type Department Care Team (Late st Contact Info) Description 12/15/2024 11:00 AM CDT Office Visit [facility] Ear Nose and Throat [address] [phone] Diego Kaplan MD [address] [address] Health Maintenance Due Date Last Done Comments DTAP/TDAP/TD VACCINES (1 - Tdap) 1964 ZOSTER VACCINE (1 of 2) 1964 RSV VACCINE (60+ or ) (1 - 1-dose 75+ series) 2019 COVID-19 Vaccine (3 - Modern a risk series) 12/05/2020 11/07/2020, 10/06/2020 INFLUENZA VACCINE (#1) 2024 , 04/29/2020, 06/05/2018, Additional history exists [place] Preventative Visit/Annual Wellness Visit 08/19/2024 PNEUMOCOCCAL VACCINE 50+ YEARS Completed 08/31/2015 , 10/19/2010 OSTEOPOROSIS SCREENING Completed 03/18/2024 Insurance [facility] [id number]
--- OUTSIDE RECORDS SUMMARY | 2024-12-08 17:56 | XMS_ITS | Clinical Summary ---
Author Organization [facility] Address [address], [address] [address] Phone Care Team Providers Care Med Care Manager Name Role Phone Jacque Casey MD Primary Care Provider Allergies Active Allergy Reactions Criticality Noted Date Comments Penicillins Anaphylaxis 08/22/2017 Sulfa Antibiotics Other (see Comments) 08/22/19 18 Unable to walk Azithromycin Itching 11/05/2019 Medications metFORMIN (GLUCOPHAGE) 1000 MG Tablet Take 1,000 mg by mouth daily. Active Clobetasol Prop Crea-Weber Tar (CLOBETAPLUS CREAM EX) by Apply externally route daily as needed. Active Active Problems Problem Noted Date Diagnosed Date Irritable bowel syndrome with diarrhea Cirrhosis of liver without ascites 11/29/2020 Immunizations Immunization Administration Dates Next Due Covid-19, Mrna, Lnp-s, PF, 1 00 mcg/0.5 mL Dose (Moderna) 11/07/2020,10/06/2020 Hepatitis B Vaccine 08/23/2020,03/20/2020,2019 Influenza, High-dose, Quadrivalent 04/29/2020, Influenza, high-dose, trivalent, PF 04/29/2020,1 ,06/04/2017 Pneumococcal Vaccine - 13 Valent 08/31/2015 Pneumococcal Vaccine Adult - 23 Valent 1 Family History Medical History Relation Name Comments Heart Disease Father Colon Cancer Maternal Grandmother Heart Disease Mother HEART PROBLEM S Rheumatoid Arthritis Mother Cancer Other pancreatic, lynn ast, thyroid Cancer Sister cancer on leg Other-comment Sister churg-oli syndrome Other-comment Son Trigeminal hannah ralgia. Breast Cancer Neg Hx Relation Name Status Comments Father Maternal Grandmother Mother Other Other three first cou sin Sister Son Social History Tobacco Use Types Packs/Day Years Used Date Smoking Tobacco: Never Smokeless Tobacco: Never Tobacco Cessation:Counseling Given: No Alcohol Use Standard Drinks/Week Comments Not Currently 0 (1 standard drink = 0.6 oz pur e alcohol) Sexually Active Control Partners Comments Not Currently Comments No Sex and Gender Information Value Date Recorded Sex Assigned at Not on file Legal Sex Female 10:06 PM CDT Gender Identity Not on file Sexual Orientation Not on file Last Filed Vital Signs Vital Sign Reading Time Taken Comments Blood Pressure 148/72 11/29/2020 1:56 PM CDT Pulse 73 11/29/2020 1:56 PM CDT Temperature 36.7 C (98 F) 11/29/2020 1:56 PM CDT Respiratory Rate 22 11/29/2020 1:56 PM CDT Oxygen Saturation 97% 11/29/2020 1:56 PM CDT Inhaled Oxygen Concentration - - Weight 117.5 kg (259 lb) 11/29/2020 1:56 PM CDT Height 160 cm (5' 3 ) 11/29/2020 1:56 PM CDT Body Mass Index 45.88 11/29/2020 1:56 PM CDT Plan of Treatment Health Maintenance Due Date Last Done Comments TdaP Immunization 1944 Mammogram 1954 Zoster Immunization (1 of 2) 1994 Respiratory Syncytial Virus (RSV) Immunization (Adult) (1 - 1-dose 75+ series) 2019 Influenza Immunization (#1) 2024 10/0 03/2021, 04/29/2020, 04/29/2020, Additional history exists SARS-COV-2 Immunization ( season) 2024 07/14/2021, 11/07/2020, 10/06/2020 Pneumococcal Immunization (50+ years) Completed 08/31/2015, 10/19/2010 Pneumococcal Immunization Combined Discontinued 08/31/2015, 10/19/2010 Hepatitis C Virus (HCV) Screening Completed 11/05/2019 Hepatitis B Immunization Completed 021, 03/20/2020, 02/18/2020 Colonoscopy High Risk Discontinued 10/31/2020 , 09/04/2017, 09/10/2012, Additional history exists Colonoscopy Discontinued 10/31/2020, 08/19, 09/10/2012, Additional history exists Colorectal Cancer Screening Discontinued Cologuard Discontinued Immunochemical Fecal Occult Blood Discontinued Meningococcal Immunization (ACWY) Aged Out No longer eligible based on patient's age to complete this topic Rotavirus Immunization Aged Out No lo nger eligible based on patient's age to complete this topic Procedures Procedure Name Priority Date/Time Associated Diagnosis Comments HEPATITIS PANEL ACUTE (AHP) Routine 11/05/2019 3:22 PM CDT Cirrhosis of liver without ascites, unspecified hepatic cirrhosis type (HCC) RUQ abdominal pain Class 1 obesity with serious comorbidity in adult, unspecified BMI, unspecified obesity type COLONOSCOPY Routine 09/10/2012 from Last 3 Months or Most Recently Relevant to Health Maintenance Results * HEPATITIS PANEL ACUTE (AHP) (11/05/2019 3:22 PM CDT) HEPATITIS A IGM ANTIBODY NON DETECTED NON DETECTED 11/05/2019 9:45 PM CDT [facility] Comment: IGM Antibodies to HAV not detected. Does not exclude early acute or recovered HAV infection. HEP B CORE AB (IGM) NON DETECTED NON DETECTED 11/05/2019 9:45 PM CDT [facility] Comment:IGM anti-HBC not det ected. Does not exclude the possibility of exposure to or infection with HBV. HEPATITIS B SURFACE ANTIGEN NON DETECTED NON DETECTED 11/05/2019 9:45 PM CDT [facility] Comment:A nonreactive test r esult does not exclude the possibility of exposure to or infection with Hepatitis B virus. A nonreactive test result in individuals with prior exposure to hepatitis B may be due to antigen levels below the detection limit of this assay or lack of antigen reactivity to the antibodies in this assay. hepatitis C antibody 0.20 <1 S/CO 11/05/2019 9:45 PM CDT [facility] Comment: Signal/Cutoff ratio < 0.79 is Nondetected Signal/Cutoff ratio 0.80-0.99 is Grayzone Signal/Cutoff ratio > 0.99 is Detected Supplemental assays are recommended if signal/cutoff ratio is >/=1.00. Signal/cutoff ratio result >/= 5.00 is 97% predictive of positivity for recombinant immunoblot assay (RIBA) and will be reported to the [place] Department of Public Health as required. Blood specimen (specimen) Venipuncture / Unknown 11/05/2019 3:22 PM CDT 11/05/2019 4:33 PM CDT us Jesus Alberto Zelaya DO HEMATOLOGY ORDERABLES Final Res [facility] [address] [place] [address], [place] * COLONOSCOPY (09/10/2012) us Jesus Alberto Zelaya DO PROCEDURE/MINOR SURGICAL ORDERA BLES Final Result from Last 3 Months or Most Recently Relevant to Health Maintenance Insurance MEDICARE C [facility] Care Teams Med Care Manager Relationship Specialty Start Date End Date Jacque Casey MD PCP - General Family Medicine 11/05/19
--- OUTSIDE RECORDS SUMMARY | 2024-12-08 17:56 | XMS_ITS | Data Portability ---
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 she is here for follow-up of right shoulder pain. She has go to physical therapy and got a little bit of benefit from it. However right shoulder still very painful for Her. it is painful use. Again she is not able take anti-inflammatori es due to cirrhosis of liver. Physical exam: 77-year-old female alert pleasant. She has active elevation to 145 external rotation 80 internal rotation is to T12. She has cejc-pz-geknlpzy pain with rotation. She has some very mild weakness with external rotation as well as abduction both so seated with moderate pain. Nszs-ri-rbudxqzy tenderness over the anterior supraspinatus tendon insertion. Impression: 77-year-old female who has continued pain right shoulder. She has no osteoarthritis of glenohumeral joint. Last time she was here she was quite stiff and there was little bit of a concern about frozen shoulder but she has improved her range of motion. So I think at this point is most likely pain coming from the rotator cuff tendon. She does have some weakness with strength testing given her age most likely thing would be a small tear of the rotator cuff tendon. She does not wish to have a cortisone injection. She is very fearful of needles. She is going to continue with therapy. If she gets to the point where she does not feel she is making progress and wants an injection she will call. We also talked about using Voltaren gel on the shoulder as this may help a little bit with her symptoms and she will experiment with this as well. She will call she needs an injection otherwise we will see her back as needed. 20 minutes was spent in treatment patient more than half of this in uahj-bf-xnqx conversation [email or web address] Not available 05/08/2023 09:22:08 05/24/2023 05/24/2023 patient returns. She was last seen on May 08. She injured her shoulders and has right greater than left shoulder pain from doing extensive housecleaning 2 months ago that was quite rigorous. The right shoulder still has difficulty reaching entering the wheel. She had gone through some physical therapy prior to that and was still having problems but she elected to wait on the option of a cortisone shot was offered at that time. On exam the right shoulder has range of motion elevation 145 pain at 80 external rotation 50 internal rotation L1 with pain. She has kkfx-iq-wflbllqi weakness external rotation and abduction both with pain negative belly press. No redness swelling or warmth. Severe tenderness of over the supraspinatus tendon insertion. Left shoulder is moderate weakness in abduction minimal weakness in external rotation. She has been using Voltaren gel. She tried twice and did not help. With her history of cirrhosis of the liver, it would be best I think for her to avoid the Voltaren gel as some of it is absorbed systemically and could be toxic to her remaining liver function. Patient has decided she would like to try cortisone shot. I have discussed the advantages and disadvantages of this approach. She is absolutely certain she would never wish to consider surgical repair of rotator cuff tear. My clinical suspicion is that she does have a moderately large rotator cuff tear in the right shoulder that was exacerbated by her heavy cleaning activities and likely has the same problem on left shoulder. I have explained that multiple cortisone shots can be associated with further softening and weakening of the tendon provoke promote faster tearing. She would like to try cortisone shot today. Risk of side effects including risk of infection infected blood sugars may go up for a few days was discussed. After ChloraPrep prep, 20 mg of Kenalog and 4 cc of 0.5% ropivacaine were injected into the right shoulder through a posterior subacromial approach. She seemed to get moderate initial relief with elevation. I will see her back in 6 weeks assess her progress. 30 minutes were spent in total care this patient more than half the time spent in xrok-ty-afak care. Not available 06/09/2023 14:46:22 07/05/2023 07/05/2023 Patient returns. We last saw her May 24 and we gave her cortisone shot in the subacromial space right shoulder which was helpful. She still has soreness in the right shoulder but overall is doing much better and she can sleep on it now. She does have diabetes her last hemoglobin A1c was 6.3. She cannot tolerate nonsteroidal anti-inflammatory medications because of history of cirrhosis of the liver. Clinically her right shoulder showed evidence for chronic rotator cuff tear this abduction external rotation. Left shoulder strength showed moderate weakness abduction minimal weakness externa rotatation. she has been going to physical therapy and feels this is very helpful and she is doing it on both shoulders but her chief complaint today is that her left shoulder is more painful now she can not sleep on it and she would like to try a cortisone shot in the left shoulder. X-rays of left shoulder show no abnormalities except for surface irregularity at the greater tuberosity consistent with chronic rotator cuff tear. She has normal glenohumeral joint. Impression: Chronic rotator cuff tear in the left shoulder based on her clinical exam. I have reviewed with her that multiple cortisone shots can we can the tendon and if she were to decide to have rotator cuff repair in the future history of cortisone shots can compare the results of surgical repair. She is fairly certain that she would never want to undergo rotator cuff repair surgery. She would like cortisone shot today. Risk of side effects including risk of infection discussed. After ChloraPrep prep, 20 mg of Kenalog and 4 cc of 0.5% ropivacaine were injected the subacromial space left shoulder. . She would like 1 more month of physical therapy. I will be happy to see her back on as-needed basis. 20 minutes were spent total care this patient more than half the time spent in przr-uz-jant care. Not available 07/07/2023 15:13:35 2023 2023 Impression: 1. Patient has anterior knee pain right knee. The knee replacement itself shows no effusion no instability in full range of motion today. She has tenderness over the pes anserine bursa which she has off and on and she has this bilaterally chart do not think is the source of her current complaints. 2. Patient has pain in her knee with provocative maneuvers of her right hip. She has weakness in flexion both sitting and supine associated with pain in the medial groin medial thigh and anterior knee. She has weakness in abduction of the right hip in the side-lying position which is uncomfortable for. There is minimal tenderness over the greater trochanter however. X-rays are inconclusive there may be a subtle lucency the medial femoral head. I recommended obtaining an MRI scan of the right hip for full evaluation of possible pathology in the right hip joint. I will see her back after the test. I have discussed differential diagnosis with her and since insufficiency fracture or stress fracture is a consideration I recommend that she use a walker with front wheels full-time until she sees us back. She has 1 at home which she will start using today. 30 minutes were spent total care this patient more than half the time spent in rcxy-go-eydg care. Not available 2023 10:00:27 08/15/2023 08/15/2023 Impression: Patient has anterior groin thigh and knee pain without sensory or motor deficit. The origin is not identified as yet. I am suspicious that she may have L3 radicular pain on the right which I think would explain her complaints as well as explain the positive femoral nerve stretch test results and I think this may also explain why she can not slide her right leg off the bed onto the floor and LEs she is holding her knee straight. By allowing her hip to hyper extended little bit, if she also had her right knee flexed, this would cause a femoral nerve stretch maneuver. I have recommended proceeding with MRI scan of her lumbar spine is she is miserable and she does not feel is getting any better. If she does have pathology that would correlate with L3 radicular pain on the right, I would refer to pain management for trial of a selective nerve root or epidural injection. I will see her back after the test. I think it would be worth trying a Medrol Dosepak to see if this gives her some relief. 40 minutes were spent in total care this patient more than half the time spent in yrxn-wj-lzty care. Not available 08/15/2023 09:56:34 Plan of Treatment Reminders Order Date Submit Date Provider Last Modified By Organization Details Last Modified Time Details Appointments None recorded. Lab None recorded. Referral None recorded. Procedures injection/a spiration joint/bursa (PROC) - in office procedure, administere d by provider 2022 023 In-Office Order, Internal Use Only DO Not Attach Compendium DO Not Attach Compendium, Do Not Delete/merge, [id number] 16:28:15 injection/a spiration joint/bursa (PROC) - in office procedure, administere d by provider 2022 023 In-Office Order, Internal Use Only DO Not Attach Compendium DO Not Attach Compendium, Do Not Delete/merge, [id number] 3 12:56:47 Surgeries None recorded. Imaging XR, knee 2022 023 [facility] [place], [address], [place], [address], 3 14:03:42 XR, hip + pelvis, unilateral, 2 or 3 view 2022 023 [facility] [place], [address], [place], [address], 3 14:03:42 XR, shoulder 2022 023 [email or web address] [facility] [place], [address], [place], [address], 3 10:22:06 Medication Orders Medrol (Jaime) 4 mg tablets in a dose pack 2022 023 [facility] [id number] In [facility], [address], [place], [address], 3 17:17:14 Kenalog 10 mg/mL suspension for injection 2022 023 [email or web address] [id number] In [facility], [address], [place], [address], 3 08:51:43 ropivacaine (PF) 5 mg/mL (0.5 %) injection solution 2022 023 [email or web address] [facility] [id number] In [facility], [address] [facility] [address] [facility], [place], [address], 3 08:51:46 Kenalog 10 mg/mL suspension for injection 2022 023 [email or web address] [facility] [address] In [facility], [address] [facility] [address] [facility], [place], [address], 3 08:51:43 ropivacaine (PF) 5 mg/mL (0.5 %) injection solution 2022 023 [email or web address] [facility] [address] In [facility], [address] [facility], [place], [address], 3 08:51:46 Patient TargetsNo targets recorded. Patient InstructionsNo instructions recorded. Reason for Referral None Reported. Results Created Date Observation Date Name Description Value Unit Range Abnormal Flag Note LastModifiedBy Organization Detail LastModifiedTime 04/10/20 XR, shoul sundar No observ ation record ed. [email or web address] [facility] [place] [address], [place], [address], 04/10/2023 10:23:07 07/05/20 XR, shoul sundar No observ ation record ed. [facility] [place] [address], [place], [address], 07/07/2023 15:14:06 07/31/20 XR, knee No observ ation record ed. [facility] [place] [address] [facility] [address], [place], [address], 2023 09:56:34 07/31/20 XR, hip + pelvi s, unila teral , 2 or 3 view No observ ation record ed. [facility] [place] [address], [place], [address], 2023 09:58:27 08/08/20 23 08/08/2023 MRI, hip, w/o contr ast No observ ation record ed. [email or web address] [facility] [address], [place], [address], 08/08/2023 17:31:24 Result Notes None recorded. Problems Name Problem SNOMED Code Status Onset Date Resolution Date Notes Provider Name and Address Organization Details Recorded Time Cirrhosis of liver Active 2018 Not Available [facility] 3 02:55:26 Osteoarthr itis of knee 046993627 Active Not Available [facility] 3 02:55:26 Enthesopat hy of knee 96847471 Active Not Available [facility] 3 02:55:26 Pain of bilateral knee joints 7399055474237 04 Active 2021 Not Available [facility] 3 02:55:27 Pain of right shoulder joint 8529365620226 9100 Active 2022 ROSALEE Velasco null, [place] - [facility] [employer] [facility] 3 08:48:21 Bilateral osteoarthr itis of knees 6664837660334 07 Active 2022 ROSALEE Velasco null, [place] [facility] [employer] [facility] 3 12:14:02 Pain of left shoulder joint 0413190218602 9109 Active 2022 Edilma Cadena CMA null, [place] [facility] 3 12:59:26 Pain of right knee joint 7136539783217 00 Active 2022 ROSALEE Velasco null, [facility] [employer] [facility] 08:52:21 Pain in right hip joint 7569496403612 02 Active 2022 Edilma Cadena CMA null, [facility] 09:55:59 Problem Notes None recorded. Procedures Surgical History Date Name Laterality Status Provider Name and Address Organization Details Recorded Time Knee Replacement completed Not Available [facility] 10/17/2022 02:48:31 Hysterectomy completed Not Available [facility] 10/17/2022 02:48:31 Foot Surgery completed Not Available [facility] 10/17/2022 02:48:31 operation on nasal septum completed Not Available [facility] 10/17/2022 02:48:31 Carpal tunnel surgery completed Not Available [facility] 10/17/2022 02:48:31 procedure on gallbladder completed Not Available [facility] 10/17/2022 02:48:31 Breast Surgery completed Not Available [facility] 10/17/2022 02:48:31 Imaging Results Imaging Date Name Status LastModified by Organiz ation Details LastModified Time 04/10/2023 XR, shoulder completed [email or web address] [facility] [place] [address] [facility] [address], [place], [address], 04/10/2023 10:23:07 07/05/2023 XR, shoulder completed [facility] [place] [address] [facility] [address] [address], [place], [address], 07/07/2023 15:14:06 2023 XR, knee completed [facility] [place] [address], [place], [address], 2023 09:56:34 2023 XR, hip + pelvis, unilateral, 2 or 3 view completed [facility] [place] [address], [place], [address], 2023 09:58:27 08/08/2023 MRI, hip, w/o contrast completed [email or web address] [facility] [address], [place], [address], 08/08/2023 17:31:24 Procedure Notes None recorded. Medical Equipment None Reported. Allergies Allergen ID Allergen Name Allergen Category Reaction Reaction Severity Criticality Documentation Date Start Date Code Code System Note Provider Name and Address Organization Details Recorded Time 4847 Substance with sulfonami de structure and antibacte rial mechanism of action (substanc e) medicatio n Not available Not available Not available 10/17/2022 02999 8003 SNOMED Not Available [facility] 3 03:04:06 4848 Product containin g penicilli n (product) medicatio n Not available Not available Not available 10/17/2022 70643 8001 SNOMED Not Available [facility] 3 03:04:06 4849 azithromy preet medicatio n rash Not available Not available 10/17/2022 33698 RxNorm Not Available [facility] 3 03:04:06 Medications Name Sig Start Date Stop Date Status Note LastModified by Organization Details LastModified Time cyclobenzap rine 10 mg tablet 08/20 completed Not Available Not Available Not Available methocarbam ol 500 mg tablet TAKE 1 TABLET BY MOUTH THREE TIMES DAILY 09/12 completed Not Available Not Available Not Available anastrozole 1 mg tablet 08/20 completed Not Available Not Available Not Available doxycycline hyclate 100 mg capsule 08/20 completed Not Available Not Available Not Available clindamycin HCl 300 mg capsule 09/26 completed Not Available Not Available Not Available valacyclovi r 1 gram tablet 08/20 completed Not Available Not Available Not Available clarithromy preet 500 mg tablet 08/20 completed Not Available Not Available Not Available hydrocodone 5 mg-acetamin ophen 325 mg tablet 04/15 completed Not Available Not Available Not Available glipizide ER 10 mg tablet, extended release 24 hr TAKE 1 TABLET BY MOUTH DAILY 05/08 completed Not Available Not Available Not Available meloxicam 15 mg tablet 09/12 completed Not Available Not Available Not Available famotidine 40 mg tablet 09/12 completed Not Available Not Available Not Available moxifloxaci n 400 mg tablet 08/20 completed Not Available Not Available Not Available clobetasol 0.05 % topical cream APPLY TOPICALLY AFFECTED AREA TWICE A DAY active Not Available Not Available No t Available doxycycline monohydrate 100 mg tablet 08/20 completed Not Available Not Available Not Available tramadol 50 mg tablet 08/20 completed Not Available Not Available Not Available clobetasol 0.05 % topical gel APPLY TO AREA ON ARM DAILY, COVER WITH TAPE, AND WASH OFF IN A.M. UNTIL FLAT 10/13 completed Not Available Not Available Not Available oxycodone-a cetaminophe n 5 mg-325 mg tablet 08/20 completed Not Available Not Available Not Available hydrocortis one 2.5 % topical cream with perineal applicator 11/07 completed Not Available Not Available Not Available alprazolam 0.5 mg tablet 08/20 completed Not Available Not Available Not Available Kenalog 10 mg/mL suspension for injection in office 07/[address] [facility]: 0003- 0494- 20 Not Available Not Available Not Available meclizine 25 mg tablet 08/20 completed Not Available Not Available Not Available cephalexin 500 mg capsule TAKE 4 CAPSULES BY MOUTH 1 HOUR PRIOR TO DENTAL APPOINTME NT active Not Available Not Available No t Available Advair Diskus 250 mcg-50 mcg/dose powder for inhalation 08/20 completed Not Available Not Available Not Available mometasone 50 mcg/actuati on nasal spray 08/20 completed Not Available Not Available Not Available montelukast 10 mg tablet 08/20 completed Not Available Not Available Not Available mupirocin 2 % topical ointment 11/07 completed Not Available Not Available Not Available dexamethaso ne sodium phosphate 4 mg/mL injection solution 08/20 completed Not Available Not Available Not Available cefuroxime axetil 500 mg tablet 08/20 completed Not Available Not Available Not Available polyethylen e glycol 3350 17 gram/dose oral powder 08/20 completed Not Available Not Available Not Available estradiol 0.01% (0.1 mg/gram) vaginal cream INSERT 1 GRAM INTO THE VAGINA 2 TIMES A WEEK 05/08 completed Not Available Not Available Not Available methylpredn isolone 4 mg tablets in a dose pack TAKE 6 TABLETS ON DAY 1 DIRECTED ON PACKAGE AND DECREASE BY 1 TAB EACH DAY FOR A TOTAL OF 6 DAYS active Not Available Not Available No t Available SSD 1 % topical cream 08/20 completed Not Available Not Available Not Available metformin ER 500 mg tablet,exte nded release 24 hr TAKE 2 TABLETS BY MOUTH DAILY 10/13 completed Not Available Not Available Not Available tamoxifen 20 mg tablet 08/20 completed Not Available Not Available Not Available naproxen 500 mg tablet 08/20 completed Not Available Not Available Not Available Microlet Lancet USE TO CHECK BLOOD SUGAR QD UTD 09/26 completed Not Available Not Available Not Available clobetasol- emollient 0.05 % topical cream 08/20 completed Not Available Not Available Not Available metformin 10/13 completed Not Available Not Available Not Available Januvia 25 mg tablet TAKE 1 TABLET BY MOUTH ONCE DAILY active Not Available Not Available No t Available Engerix-B (PF) 20 mcg/mL intramuscul ar syringe ADMINISTE R 1ML IN THE MUSCLE DIRECTED 11/07 completed Not Available Not Available Not Available ropivacaine (PF) 5 mg/mL (0.5 %) injection solution in office 07/31 completed Not Available Not Available Not Available lidocaine 5 % topical ointment 09/16 completed Not Available Not Available Not Available Contour Next Test Strips USE TO TEST BLOOD GLUCOSE QD 09/26 completed Not Available Not Available Not Available Contour Next Meter USE TO CHECK BLOOD SUGAR D 09/26 completed Not Available Not Available Not Available clobetasol 0.025 % topical cream APPLY A THIN LAYER TO THE AFFECTED AREA(S) BY TOPICAL ROUTE 2 TIMES PER DAY ; RUB IN GENTLY AND COMPLETEL Y 10/13 completed Not Available Not Available Not Available Ozempic 0.25 mg or 0.5 mg (2 mg/1.5 mL) subcutaneou s pen injector INJECT 0.5MG UNDER THE SKIN ONCE A WEEK FOR 4 WEEKS 05/08 completed Not Available Not Available Not Available Fluzone High-Dose Quad (PF) 240 mcg/0.7 mL IM syringe ADM 0.7ML IM UTD 11/07 completed Not Available Not Available Not Available Ozempic 1 mg/dose (4 mg/3 mL) subcutaneou s pen injector INJECT 1 MG (0.75 ML) SUBCUTANE OUSLY WEEKLY active Not Available Not Available No t Available Ozempic 0.25 mg or 0.5 mg (2 mg/3 mL) subcutaneou s pen injector INJECT 0.5MG SUBCUTANE OUSLY ONCE WEEKLY active Not Available Not Available No t Available Vitals Date Recorded Body height Provider Name an d Address Organization Details Last Updated DateTime 05/08/2023 160.02 cm Chantelle Harris [facility] [employer] [facility] 05/08/2023 08:57:22 Date Recorded Body height Provider Name an d Address Organization Details Last Updated DateTime 05/24/2023 160.02 cm Chantelle Harris [facility] [employer] [facility] 05/24/2023 12:12:03 Date Recorded Body height Provider Name an d Address Organization Details Last Updated DateTime 07/05/2023 160.02 cm Chantelle Harris [facility] [employer] [facility] 07/05/2023 12:13:37 Date Recorded Body height Provider Name an d Address Organization Details Last Updated DateTime 2023 160.02 cm Chantelle Harris [facility] [employer] [facility] 2023 08:51:34 Date Recorded Body height Provider Name an d Address Organization Details Last Updated DateTime 08/15/2023 160.02 cm Chantelle Harris [facility] [employer] [facility] 08/15/2023 09:05:19 Social History Question Answer Notes LastModified by Organizat ion Details LastModified Time Tobacco Smoking Status Never Smoker Not Available [facility] 10/17/2022 02:44:38 What Is Your Level Of Alcohol Consumption? None [id number] Information not available 10/17/2022 What Was The Date Of Your Most Recent Tobacco Screening? 11/07/2020 [id number] Information not available 10/17/2022 Sex: Unknown Functional Status None recorded. Mental Status None recorded. Family History Relationship Description Onset Age of this Age Resolved Age Notes LastModified by Organization Details LastModified Time Father Heart disease [id number] Not available 10/17/2022 02:48:34 Mother Heart disease [id number] Not available 10/17/2022 02:48:34 Unspecified Relation Family history of malignant neoplasm [id number] Not available 10/17/2022 02:48:34 Daughter Blood coagulation disorder [email or web address] Not available 2022 09:11:57 Medical History Condition Response BLINDNESS N KIDNEY STONES N MRSA N CARPAL TUNNEL SYNDROME N LUNG DISEASE/DISORDER N HISTORY OF DRUG ABUSE N RADIATION / CHEMOTHERAPY N COPD N SPORTS INJURY N ANKLE PAIN N BLOOD DISEASES N SCHIZOPHRENIA N SHINGLES N BOWEL PROBLEMS N SHOULDER PAIN N DEPRESSION (INCLUDING POST ) N STROKE/TIA N KNEE PAIN N ULCERS N BENIGN PROSTATIC HYPERPLASIA N OBESITY N GERD/NAUSEA N ANEURYSM N URINARY/BLADDER/KIDNEY PROBLEMS N CORONARY ARTERY DISEASE (CAD) N ADDICTION CONCERNS N USE OF BLOOD THINNERS N SKIN PROBLEMS N EMPHYSEMA N MUSCLE,JOINT OR BONE PROBLEMS N DVT N STOMACH ULCERS N BLOOD CLOTS N USE OF NSAIDS N CONCUSSION OR SPINAL TRAUMA N NEUROPATHY N AIDS/HIV N FRACTURES N ELBOW PAIN N HYPERTENSION N TOURETTE'S N ANXIETY DISORDER N Metal allergy N BLOOD TRANSFUSION N ANEMIA/BLOOD DISORDER N BIPOLAR DISORDER N BRONCHITIS N OSTEOARTHRITIS N TUBERCULOSIS N FOOT PROBLEM N HEART VALVE DISORDERS N ALLERGIES/HAYFEVER N SOFT TISSUE INJURY N INFECTIOUS DISEASE N HEART ARRHYTHMIA N INSOMNIA N RHEUMATOID ARTHRITIS N HIGH CHOLESTEROL / HYPERLIPIDEMIA N EDEMA N CHRONIC PAIN SYNDROME N CAROTID BLOCKAGE N BACK / NECK PROBLEMS N HAVE YOU BEEN HOSPITALIZED OR SEEN IN [facility] IN THE PAST YEAR ? N BURSITIS N HERNIATED DISC N DIALYSIS N FIBROMYALGIA N OSTEOPOROSIS N ARTHRITIS Y NO SIGNIFICANT PAST MEDICAL HISTORY N PERIPHERAL NEUROPATHY N DIABETES, TYPE Y HEARTBURN / REFLUX N HEPATITIS / LIVER DISEASE N GOUT N SLEEP DISORDER N ALZHEIMER'S DISEASE N HERPES N SEIZURES/EPILEPSY N HEADACHES/MIGRAINES N VASCULAR DISEASE N HIP PAIN N Blood Disorder N DIZZINESS N HEAD TRAUMA OR INJURY N HEART DISEASE/HEART PROBLEMS N MULTIPLE SCLEROSIS N CARDIAC ARRHYTHMIA N CANCER: SPECIFY Y ANESTHESIA COMPLICATIONS N ATRIAL FIBRILLATION N AUTOIMMUNE DISEASE N Gynecological HistoryNo gynecological history recorded. Obstetrics History GPAL:G 0 P 0 0 0 0 Past Encounters Encounter ID Performer Location Encounter Start Date Encounter Closed Date Diagnosis/Indication Diagnosis SNOMED-CT Code Diagnosis ICD10 Code Diagnosis Note [id number] [facility] [address] [place], [place] [address] 11/07/2020 00:00:00 11/07/2020 15:28:47 [id number] [facility] [address] [place], [place] [address] 10/13/2021 00:00:00 10/13/2021 10:05:28 [id number] VANGIE Villanueva [facility] [address] [place], [place] [address] 04/10/2023 08:37:53 04/10/2023 10:58:09 Pain of right shoulder joint [id number] M25.194 [id number] VANGIE Villanueva [facility] [address] [place], [place] [address] 05/08/2023 08:53:09 05/08/2023 09:43:57 Pain of right shoulder joint [id number] M25.443 [id number] Aaron Grant MD [facility] [address] [place], [place] [address] 05/24/2023 12:09:57 06/10/2023 11:20:40 Pain of right shoulder joint [id number] M25.540 [id number] Aaron Grant MD [facility] [address] [place], [place] [address] 07/05/2023 12:05:57 07/09/2023 10:22:06 Pain of left shoulder joint [id number] M25.287 [id number] Aaron Grant MD [facility] [address] [place] [address] 2023 08:35:40 2023 10:04:06 Pain of right knee joint [id number] M25.742 [id number] Aaron Grant MD [facility] [address] [address] 08/15/2023 08:56:10 08/15/2023 10:00:58 Pain in right hip joint [id number] M25.551 Health Concerns Section Related Observation LastModified by Organization Detai ls LastModified Time None Recorded Concern Status LastModified by Organization Details LastModified Time None Recorded Advance Directives Directive None Recorded Payers Encounter Date Sequence Insurance Name Policy Number Policy Martell Covered Member ID Martell Member ID Guarantor Name 05/08/2023 1 [facility] (MEDICARE REPLACEMENT/A DVANTAGE - PPO) [id number] Radha Goodman Hunter [id number] Radha Pryormesfin 05/24/2023 1 [facility] (MEDICARE REPLACEMENT/A DVANTAGE - PPO) [id number] Radha Goodman Hunter [id number] Radha Pryormesfin 07/05/2023 1 [facility] (MEDICARE REPLACEMENT/A DVANTAGE - PPO) [id number] Radha Pryormesfin [id number] Radha Monroecathy 2023 1 [facility] (MEDICARE REPLACEMENT/A DVANTAGE - PPO) [id number] Radha Pryormesfin [id number] Radha Monroecathy 08/15/2023 1 [facility] (MEDICARE REPLACEMENT/A DVANTAGE - PPO) [id number] Radha Monroecathy [id number] Radha Monroedaysi Notes Date Note Type Note Provider Name and Address Organization Details Recorded Time 2023 text/html patient returns with a new problem. She complains of severe pain anterior aspect of her right knee and has pain in medial thigh up to the medial groin. She recalls that 2 and half weeks ago she was kneeling reaching under the bed to retrieve an object and she was wearing slick shoes in while she was trying to get up and push off with the right foot the right foot cap sliding behind her she needed help to get up. She had a twinge of pain at that time the 10 a few days later the pain became quite severe 2 weeks ago. She has been taking Tylenol 1000 mg past 2 weeks. She has been limping. She has history of right total knee arthroplasty from approximately 17 years ago. Aaron Grant MD [address] [place] [address], [facility] [address], [place], [address], [facility] [employer] 2023 10:00:41 08/15/2023 text/html Patient returns after MRI scan of her right hip. I reviewed the images the radiologist's report with the patient. 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 There is no abnormality with the right hip with the bony structures or with the iliopsoas tendon or abductor tendons. She has sclerotic changes at the SI joint as noted on the radiographs but no edema on either side of the SI joint. There is no explanation for her complaints on the MRI images today. She has been using a walker much of the time. In the home she uses the counters for support. Occasionally she walks without support but walks very slowly. She spoke to her liver specialist to said she can take up to 2000 mg of Tylenol per day. I asked her to review all of her symptoms with me again today. Again this pain started July 19. She believes it is related to her struggling to get off her knees 1 week before. She complains of severe pain in the anterior right groin anterior thigh anteromedial thigh and anterior knee. She denies any numbness or tingling. Sometimes she has a cramp like spasm in the muscle in the anteromedial thigh and she has to walk around to get relief from that. She complains that she has great difficulty getting out of bed and her has to help her. She has not been able to do a sit-up most her life. She rolls on her side and she describes that she has to keep the knee straight the right knee straight as she is lowering her right foot to the floor as the right leg exits the bed 1st. With this she feels the severe pains that I described above. Today having her stand up and walk around she has also pain right inferior buttock with start-up but the pain in the groin anterior thigh and anterior knee. It hurts with weight-bearing. She indicates that she rarely has pain in her lower back. Many years ago after a fall on her back she had to stay home in bed for a week does of severe pain. Aaron Grant MD [address] [facility], [facility] [address], [place], [address], [place] - [facility] 08/15/2023 09:57:39 OBGyn Episode No OBEpisode recorded.
--- OUTSIDE RECORDS SUMMARY | 2024-12-08 17:56 | XMS_ITS ---
Author Organization [facility] Address [address] [place] [address] Care Team Providers Care Incinerator Plant Supervisor Name Role Phone Jacque Casey MD Primary Care Provider David Young MD Unavailable [phone] Active Problems Problem Noted Date Diagnosed Date Torticollis, acute 11/30/2023 Cervical spondylosis 11/30/2023 Peripheral visual field defect of both eyes 08/2022 Myogenic ptosis of eyelid of both eyes 3 Osteoarthritis of both knees 07/04/2023 Bleeding esophageal varices 06/19/2022 Overview (06/19/2022): Added automatically from request for surgery [id number] Arthralgia of both knees 10/13/2021 Irritable bowel syndrome with diarrhea 1 Enthesopathy of knee 07/13/2020 Osteoarthritis of knee 07/13/2020 Encounter for screening mamm ogram for malignant neoplasm of breast 03/15/2020 Hepatic cirrhosis (CMS/HCC) 07/19/2019 History of breast cancer 03/05/2018 Malignant neoplasm of lower- outer quadrant of right breast of female, estrogen receptor positive 04/04/2015 Lichen sclerosus et atrophicus 06/09/2013 Arthritis 07/05/2010 Current Treatment and Therapy Plans No current plan information found. Past Treatment and Therapy Plans No past plan information found. Lifetime Dose Tracking * Chemical Lifetime Dose Automatic Entry Manual Entr y Fluoro Time 0.2 minutes 0.2 minutes 0 minutes Air kerma at the reference point (Ka,r) 2 mGy 2 mGy 0 mGy Resolved Problems Problem Noted Date Diagnosed Date Resolved Date Infiltrating ductal carcinom a of female breast (CMS/HCC) 04/05/2015 10/10/2021 Estrogen receptor positive status (ER+) 04/04/2015 10/10/2021
--- OUTSIDE RECORDS SUMMARY | 2024-12-08 17:56 | XMS_ITS | Referral Summary ---
Author Organization [facility] Address [address] [place] [address] Care Team Providers Care Ornamental Metal Worker Apprentice Name Role Phone Jacque Casey MD Primary Care Provider David Young MD Unavailable [phone] Encounters Date Type Department Care Team Description 09/18/2024 10:45 AM CARD CHECKER Ancillary Procedure [facility] Imaging at [address] [address] Acute cough 09/17/2024 12:52 PM CARD CHECKER - 09/17/2024 11:59 PM CARD CHECKER Hospital Encounter [address] [id number] Acute cough Discharge Disposition: Discharge to home or self care 09/17/2024 11:45 AM CARD CHECKER Office Visit [facility] at [address] [address] Nan Jesus PA Acute cough (Primary Dx) from Last 3 Months Allergies Active Allergy Reactions Criticality Noted Date [...] (06/19/2022): Added automatically from request for surgery [id number] Arthralgia of both knees 10/13/2021 Irritable bowel [...] Estrogen receptor positive status (ER+) 04/04/2015 10/10/2021 Immunizations Immunization Administration Dates Next Due Hep B Vaccine 08/23/2020,03/20/2020,02/18/2020 Influenza, Quadrivalent, Hig h Dose, Preservative Free, Intrr 04/29/2020,06/04/2017 Influenza, Trivalent, High D ose, Split, Preservative Free, Intramuscular 04/29/2020,06/05/2018,06/04/2017 Pneumococcal Conjugate PCV 13 08/31/2015 Pneumococcal Polysaccharide PPV23 10/19/2010 Social History Tobacco Use Types Packs/Day Years [...] on file Legal Sex Female 12:43 AM CARD CHECKER Gender Identity Female 01/02/2021 4:46 PM CDT Sexual Orientation Straight 01/02/2021 4: 46 PM CDT Last Filed Vital Signs Vital Sign Reading Time Taken Comments Blood Pressure 172/81 09/17/2024 12:07 PM CARD CHECKER Pulse 86 09/17/2024 12:07 PM CARD CHECKER Temperature 37.6 C (99.7 F) 09/17/2024 12:07 PM CARD CHECKER Respiratory Rate 20 09/17/2024 12:0 7 PM CARD CHECKER Oxygen Saturation 97% 09/17/2024 12: 07 PM CARD CHECKER Inhaled Oxygen Concentration - - Weight 114.8 kg (253 lb 1.6 oz) 025 12:07 PM CARD CHECKER Height 160 cm (5' 2.99 ) 09/17/2024 12: 07 PM CARD CHECKER Body Mass Index 44.85 09/17/2024 12:07 PM CARD CHECKER Plan of Treatment Not on file Procedures Procedure Name Priority Date/Time Associated Diagnosis Comments XR CHEST PA LATERAL 2 VIEWS Schedule MANGO, Read MANGO (Appt Today, Awaiting Results) 09/18/2024 10:41 AM CARD CHECKER Acute cough INFLUENZA A/B, RSV, AND COVID-19 PCR Routine 09/17/2024 12:52 PM CARD CHECKER Acute cough THROAT CULTURE Routine 09/17/2024 12:52 PM CARD CHECKER Acute cough POCT RAPID RSV (CPT 39911) Routine 09/17/2024 12:39 PM CARD CHECKER Acute cough POC INFLUENZA A/B, COVID-19 ANTIGEN Routine 09/17/2024 12:39 PM CARD CHECKER Acute cough EGFR Routine 09/08/2024 6:54 AM CARD CHECKER Hepatic cirrhosis, unspecified hepatic cirrhosis type, unspecified whether ascites present (HCC) HEMOGLOBIN A1C Routine 09/08/2024 6:54 AM CARD CHECKER Hepatic cirrhosis, unspecified hepatic cirrhosis type, unspecified whether ascites present (HCC) Type 2 diabetes mellitus without complication, unspecified whether senior care insulin use (HCC) from Last 3 Months or Most Recently Relevant to Health Maintenance Results * XR Chest Pa Lateral 2 Views (09/18/2024 10:41 AM CARD CHECKER) Anatomical Region Laterality Modality Body, Chest N/A Digital Radiogra phy 09/18/2024 10:5 0 AM CARD CHECKER Narrative 09/18/2024 10:53 AM CARD CHECKER EXAM DESCRIPTION: XR CHEST PA LATERAL 2 [...] Rizwan Adams M.D. MZ T: Report ID: [id number] Reading Location: [place] [address] Procedure Note Rizwan Adams MD - 09/18/2024 [...] 10:53 AM - Electronically signed by Rizwan MELO T: Report ID: [id number] Reading Location: [place] [address] Nan [facility] XR PROCEDURES Final Result * (ABNORMAL) Influenza A/B, RSV, and COVID-19 PCR Nasopharyngeal (09/17/2024 12:52 PM CARD CHECKER) COVID-19 RNA Negative Negative Influenza A RNA Positive(A) Negative [facility] Influenza B RNA Negative Negative [facility] RSV RNA Negative Negative [facility] Comment: Interpretive data: Testing performed by [facility]. This test is performed using the [employer] Xpert Xpress CoV-2/Flu/RSV plus assay. This is a multiplex, real-time reverse transcriptase PCR assay intended for the qualitative detection of nucleic acid from SARS-CoV-2, influenza A, influenza B, and respiratory syncytial virus. This assay has been cleared by the [place] Food and Drug administration. The performance characteristics have been verified by the [facility]. Results must be considered in the clinical context, and a negative result does not rule out infection. Interpretive Data last revised 2023 Nasopharyngeal 09/17/2024 12 :52 PM CARD CHECKER 09/17/2024 6:38 PM CARD CHECKER Narrative [facility] - 09/17/2024 8:04 PM CARD CHECKER Is the Patient experiencing symptoms consistent with COVID?->Yes Nan [facility] MICROBIOLOGY - [facility] ORDERABLES Final Result [address] Department [place] [address] * Throat culture Throat (09/17/2024 12:52 PM CARD CHECKER) Pathologist [facility] Report Final Report: No growth of pathogens. Comment:Testing performed by : [facility], [address] [facility], [place]., [address] Throat 09/17/2024 12:5 2 PM CARD CHECKER 09/17/2024 8:53 PM CARD CHECKER Narrative [facility] - 09/18/2024 4:52 PM CARD CHECKER Testing performed by [facility] Microbiology Laboratory ([phone]). Nan Abby Tiller PA LAB MICROBIOLOGY - GENER AL ORDERABLES Final Result [facility] [place] [address] Department [place] [address] * POC Influenza A/B, COVID-19 antigen (09/17/2024 12:39 PM CARD CHECKER) Influenza A Ag, POC Negative Negative [facility] Influenza B Ag, POC Negative Negative [facility] COVID-19 Ag POC Presumptive Negative Presumptive Negative, Invalid [facility] Nasal 09/17/2024 12:3 9 PM CARD CHECKER Nan [facility] POINT OF CARE TEST ORDER WEI Final Result [facility] [address] [place] [address] * POCT rapid RSV (09/17/2024 12:39 PM CARD CHECKER) Pathologist [facility] Rapid RSV, POC Negative Negative Lot Number 0 QC Control Line Acceptable Swab 09/17/2024 12:3 9 PM CARD CHECKER Nan [facility] POINT OF CARE TEST ORDER WEI Final Result * eGFR (09/08/2024 6:54 AM CARD CHECKER) Pathologist [facility] eGFR 62 >=60 mL/min/1. 73 m2 Comment: [...] last reviewed 2021. Blood 09/08/2024 6:54 AM CARD CHECKER 09/08/2024 7:04 AM CARD CHECKER Kim Garcia MD LAB BLOOD ORDERABLES Final Result Performing Organization Address [facility] de Phone Number [facility] [place] [address] * (ABNORMAL) Hemoglobin A1c (09/08/2024 6:54 AM CARD CHECKER) Hgb A1C 6.6(H) 4.0 - 5.6 % Estimated Average Glucose 143 mg/dL [facility] Comment: The ADA recommends reporting an estimated Average Glucose (eAG) with all Hemoglobin A1c results using the equation derived from a study of 507 normal and diabetic adults. Minority populations were underrepresented and children were not included. (Diabetes Care 2020; 43(S1): S66-S76). The eAG is not equivalent to a fasting glucose. Blood 09/08/2024 6:54 AM CARD CHECKER 09/08/2024 7:04 AM CARD CHECKER Kim Garcia MD LAB BLOOD ORDERABLES Final Result Performing Organization Address [facility] de Phone Number [facility] [place] [address] from Last 3 Months or Most Recently Relevant to Health Maintenance Insurance [facility] MEDICARE ADVANTAGE MEDICARE [facility] MEDICARE ADVANTAGE [facility] MEDICARE ADVANTAGE Advance Directives For more information, please contact: [phone] Documents on File Type Date Recorded Patient 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
--- OUTSIDE RECORDS SUMMARY | 2024-12-08 17:56 | XMS_ITS | Clinical Summary ---
Author Organization [facility] Address [address] [place] [address] Care Team Providers Care School Year Nanny Name Role Phone Jacque Casey MD Primary Care Provider Shalini Murray MD Unavailable [phone] Source Comments [facility],non-owned Affiliates and Associated Physician Practices is amultiple site organization consisting of ambulatory clinics and hospital sitesin [place], [place], [place] and [place]. This disclosure is being madepursuant to the Care Everywhere program and may not contain all information available regarding this patient. Last updated 18.[facility] Allergies Active Allergy Reactions Criticality Noted Date Comments Azithromycin Diarrhea,Itching,Luther h,GI Discomfort Medium 03/05/2018 Cephalexin Diarrhea Low 11/30/2023 Cough Syrup GI Discomfort 12/10/2023 WITH CODINE Penicillins Unknown,Anaphylaxis,Swelling High 2017 S[facility] Drugs 06/04/2017 Medications * Be aware that medications may not be up to date on this document. Alwaysverify current medications with the patient. glimepiride (Amaryl) 1 MG tablet TAKE 1 TABLET BY MOUTH EVERY MORNING - ADMINISTER WITH BREAKFAST 4 Active clobetasol (Temovate) 0.05 % cream Apply to affected area 2 times daily 3 Active cephalexin (Keflex) 500 MG capsule Dental only 3 Active cyclobenzaprine (Flexeril) 10 MG tablet 1 (one) tablet at bedtime 4 Active acetaminophen (Tylenol) 500 MG tablet Take 1 (one) tablet to 2 (two) tablets by mouth every 6 hours as needed 4 Active hydroxychloroqu ine (Plaquenil) 200 MG tablet TAKE 1 (ONE) TABLET BY MOUTH 2 TIMES DAILY 60 tablet 3 5 Active Active Problems No known active problems Encounters Date Type Department Care Team Description 09/13/2024 Refill [facility] - Rheumatology [id number] [place] [address] [address] [place] [address] Shalini Murray MD Refill Request 09/09/2024 9:30 AM REAL ESTATE SALES MANAGER Office Visit [facility] Rheumatology [id number] [place] [address] [address] [place] [address] Shalini Murray MD Osteoarthritis of multiple joints, unspecified osteoarthritis type (Primary Dx); Polyarthralgia; Vitamin D deficiency; Lassitude; High risk medication use; Immunosuppressed status from Last 3 Months Immunizations Immunization Administration Dates Next Due INFLUENZA VACCINE, HIGH-DOSE , QUADR. (FLUZONE HIGH-DOSE QUADRIVALENT; 65Y+), 0.7 ML (HD-IIV4) 06/04/2017 Social History Tobacco Use Types Packs/Day Years Used Date Smoking Tobacco: Never Passive Smoke Exposure: Never Smokeless Tobacco: Never Tobacco Cessation:Counseling Given: Not Answered Alcohol Use Standard Drinks/Week Comments Never 0 (1 standard drink = 0.6 oz pur e alcohol) PHQ-2 Answer Date Recorded Patient Health Questionnaire-2 Score 0 03/10/2024 Comments No Sex and Gender Information Value Date Recorded Sex Assigned at Not on file Legal Sex Female 12:43 PM CDT Gender Identity Not on file Sexual Orientation Not on file Last Filed Vital Signs Vital Sign Reading Time Taken Comments Blood Pressure 126/62 09/09/2024 9:41 AM REAL ESTATE SALES MANAGER Pulse 65 09/09/2024 9:41 AM REAL ESTATE SALES MANAGER Temperature - - Respiratory Rate 18 09/09/2024 9:41 AM REAL ESTATE SALES MANAGER Oxygen Saturation 95% 09/09/2024 9:41 AM REAL ESTATE SALES MANAGER Inhaled Oxygen Concentration - - Weight 116.2 kg (256 lb 3.2 oz) 09/09/2024 9:41 AM REAL ESTATE SALES MANAGER Height 161.3 cm (5' 3.5 ) 09/09/2024 9:41 AM REAL ESTATE SALES MANAGER Body Mass Index 44.67 09/09/2024 9:41 AM REAL ESTATE SALES MANAGER Plan of Treatment Upcoming Encounters Date Type Department Care Team (Late st Contact Info) Description 03/15/2025 8:30 AM CDT Office Visit [facility] - Rheumatology [address] [facility] [address] [place], [place] [id number] Malou Slade, GAS REVERSER-CHRONOMETER ADJUSTER [address] [facility] [address] [place], [place] [id number] Health Maintenance Due Date Last Done Comments DTAP/TDAP/TD VACCINES (1 - Tdap) 1964 PNEUMOCOCCAL VACCINE 50+ (1 of 2 - PCV) 1963 ZOSTER VACCINE (1 of 2) 1963 Respiratory Syncytial Virus (RSV) Vaccine Pt: or over 60 yrs (1 - 1-dose 75+ series) 2019 COVID-19 VACCINE (3 - Modern a risk series) 12/05/2020 11/07/2020, 10/06/2020 DEPRESSION SCREENING 08/19/2024 03/10/2024 MEDICARE AWV CALENDAR YEAR 2024 INFLUENZA VACCINE (Season Ended) 2025 04/29/2020, 06/05/2018, 06/04/2017 BONE DENSITY TESTING Completed 03/18/2024 HEPATITIS B VACCINE Aged Out No longe r eligible based on patient's age to complete this topic HIB VACCINE Aged Out No longer eligi ble based on patient's age to complete this topic HPV VACCINE Aged Out No longer eligi ble based on patient's age to complete this topic MENINGOCOCCAL (Group B) VACCINE SHARED DECISION-MAKING Aged Out No longer eligible based on patient's age to complete this topic MENINGOCOCCAL GROUPS A/C/Y/W VACCINE Aged Out No longer eligible b ased on patient's age to complete this topic Procedures Procedure Name Priority Date/Time Associated Diagnosis Comments VITAMIN D 25-HYDROXY Routine 09/29/2024 10:05 AM REAL ESTATE SALES MANAGER Osteoarthritis of multiple joints, unspecified osteoarthritis type Polyarthralgia Vitamin D deficiency Lassitude High risk medication use Immunosuppressed status ERYTHROCYTE SEDIMENTATION RATE Routine 09/29/2024 10:05 AM REAL ESTATE SALES MANAGER Osteoarthritis of multiple joints, unspecified osteoarthritis type Polyarthralgia Vitamin D deficiency Lassitude High risk medication use Immunosuppressed status C-REACTIVE PROTEIN Routine 09/29/2024 10 :05 AM REAL ESTATE SALES MANAGER Osteoarthritis of multiple joints, unspecified osteoarthritis type Polyarthralgia Vitamin D deficiency Lassitude High risk medication use Immunosuppressed status COMPREHENSIVE METABOLIC PANEL Routine 09/29/2024 10:05 AM REAL ESTATE SALES MANAGER Osteoarthritis of multiple joints, unspecified osteoarthritis type Polyarthralgia Vitamin D deficiency Lassitude High risk medication use Immunosuppressed status CBC W AUTO DIFFERENTIAL Routine 09/29/2024 10:05 AM REAL ESTATE SALES MANAGER Osteoarthritis of multiple joints, unspecified osteoarthritis type Polyarthralgia Vitamin D deficiency Lassitude High risk medication use Immunosuppressed status DEXA BONE DENSITY 2 SITES 03/18/2024 from Last 3 Months or Most Recently Relevant to Health Maintenance Results * C-REACTIVE PROTEIN (09/29/2024 10:05 AM REAL ESTATE SALES MANAGER) C-Reactive Protein 9 0 - 10 mg/L [facility] ACCOUNT BILL Blood BLOOD SPECIMEN / Unknown 09/29/2024 10:05 AM REAL ESTATE SALES MANAGER 09/29/2024 Narrative [facility] ACCOUNT BILL - 09/30/2024 7:08 AM REAL ESTATE SALES MANAGER Performed at: - [facility] [id number] Access Control Specialist: Luke Palafox PhD, Phone: [phone] us Shalini Murray MD LAB - CHEMISTRY ORDERABLES Roxanna l Result [facility] ACCOUNT BILL [address] [place] [address] * VITAMIN D 25-HYDROXY (09/29/2024 10:05 AM REAL ESTATE SALES MANAGER) Vitamin D, 25 Hydroxy 41.2 30.0 - 100.0 ng/mL [facility] ACCOUNT BILL Comment: Vitamin D deficiency has been defined by the Burt of Medicine and an Endocrine Society practice guideline as a level of serum 25-OH vitamin D less than 20 ng/mL (1,2). The Endocrine Society went on to further define vitamin D insufficiency as a level between 21 and 29 ng/mL (2). 1. IOM ([place] of Medicine). 2010. Dietary reference intakes for calcium and D. [place]: The National Academies Press. 2. Nanda MF, Macario [place], Bam AVENDAÑO, et al. Evaluation, treatment, and prevention of vitamin D deficiency: an Endocrine Society clinical practice guideline. JCEM. 2010; 96(9):1911-30. Blood BLOOD SPECIMEN / Unknown 09/29/2024 10:05 AM REAL ESTATE SALES MANAGER 09/29/2024 Narrative [facility] ACCOUNT BILL - 09/30/2024 7:08 AM REAL ESTATE SALES MANAGER Performed at: 01 - [address] [id number] Access Control Specialist: Luke Palafox PhD, Phone: [phone] Shalini Murray MD LAB - CHEMISTRY ORDERABLES Roxanna l Result Performing Organization Address City/[facility] Co de Phone Number [facility] ACCOUNT BILL [address] [place] [address] * ERYTHROCYTE SEDIMENTATION RATE (09/29/2024 10:05 AM REAL ESTATE SALES MANAGER) Erythrocyte Sedimentation Rate Westergren 30 0 - 40 mm/hr [facility] ACCOUNT BILL Blood BLOOD SPECIMEN / Unknown 09/29/2024 10:05 AM REAL ESTATE SALES MANAGER 09/29/2024 Narrative [facility] ACCOUNT BILL - 09/30/2024 7:08 AM REAL ESTATE SALES MANAGER Performed at: 01 - [facility] [address] [id number] Access Control Specialist: Luke Palafox PhD, Phone: [phone] Shalini Murray MD LAB - HEMATOLOGY ORDERABLES Fin al Result Performing Organization Address City/[facility] Co de Phone Number [facility] ACCOUNT BILL [address] [place] [address] * CBC WITH DIFFERENTIAL (09/29/2024 10:05 AM REAL ESTATE SALES MANAGER) WBC 6.7 3.4 - 10.8 x10E3/uL [facility] ACCOUNT BILL RBC 4.53 3.77 - 5.28 x10E6/uL [facility] ACCOUNT BILL Hemoglobin 13.3 11.1 - 15.9 g/dL [facility] ACCOUNT BILL Hematocrit 41.0 34.0 - 46.6 % [facility] ACCOUNT BILL MCV 91 79 - 97 fL [facility] ACCOUNT BILL MCH 29.4 26.6 - 33.0 pg [facility] ACCOUNT BILL MCHC 32.4 31.5 - 35.7 g/dL [facility] ACCOUNT BILL RDW 12.3 11.7 - 15.4 % [facility] ACCOUNT BILL Platelet Count 248 150 - 450 x10E3/uL [facility] ACCOUNT BILL Granulocytes % 63 Not Estab. % [facility] ACCOUNT BILL Lymphocytes % 21 Not Estab. % [facility] ACCOUNT BILL Monocytes % 12 Not Estab. % [facility] ACCOUNT BILL Eosinophils % 3 Not Estab. % [facility] ACCOUNT BILL Basophils % 1 Not Estab. % [facility] ACCOUNT BILL Granulocytes Absolute 4.2 1.4 - 7.0 x10E3/uL [facility] ACCOUNT BILL Lymphocytes Absolute 1.4 0.7 - 3.1 x10E3/uL [facility] ACCOUNT BILL Monocytes Absolute 0.8 0.1 - 0.9 x10E3/uL [facility] ACCOUNT BILL Eosinophils Absolute 0.2 0.0 - 0.4 x10E3/uL [facility] ACCOUNT BILL Basophils Absolute 0.1 0.0 - 0.2 x10E3/uL [facility] ACCOUNT BILL Immature Granulocytes 0 Not Estab. % [facility] ACCOUNT BILL Immature Granulocytes Absolute 0.0 0.0 - 0.1 x10E3/uL [facility] ACCOUNT BILL Blood BLOOD SPECIMEN / Unknown 09/29/2024 10:05 AM REAL ESTATE SALES MANAGER 09/29/2024 Narrative [facility] ACCOUNT BILL - 09/30/2024 12:06 AM REAL ESTATE SALES MANAGER Performed at: 01 - [address] [id number] Access Control Specialist: Luke Palafox PhD, Phone: [phone] us Shalini Murray MD LAB - HEMATOLOGY ORDERABLES Fin al Result [facility] ACCOUNT BILL [address] [place] [address] * (ABNORMAL) COMPREHENSIVE METABOLIC PANEL (09/29/2024 10:05 AM REAL ESTATE SALES MANAGER) Glucose 153(H) 70 - 99 mg/dL [facility] ACCOUNT BILL BUN 17 8 - 27 mg/dL [facility] ACCOUNT BILL Creatinine 0.86 0.57 - 1.00 mg/dL [facility] ACCOUNT BILL eGFR by CKD-EPI 68 >59 mL/min/1.7 3 [facility] ACCOUNT BILL BUN/Creatinine Ratio 20 12 - 28 [facility] ACCOUNT BILL Sodium 140 134 - 144 mmol/L [facility] ACCOUNT BILL Potassium 4.6 3.5 - 5.2 mmol/L [facility] ACCOUNT BILL Chloride 102 96 - 106 mmol/L [facility] ACCOUNT BILL CO2 25 20 - 29 mmol/L [facility] ACCOUNT BILL Calcium 9.8 8.7 - 10.3 mg/dL [facility] ACCOUNT BILL Protein Total 6.4 6.0 - 8.5 g/dL [facility] ACCOUNT BILL Albumin 3.9 3.8 - 4.8 g/dL [facility] ACCOUNT BILL Globulin Total 2.5 1.5 - 4.5 g/dL [facility] ACCOUNT BILL Bilirubin Total 0.6 0.0 - 1.2 mg/dL [facility] ACCOUNT BILL Alkaline Phosphatase 77 44 - 121 IU/L [facility] ACCOUNT BILL AST 16 0 - 40 IU/L [facility] ACCOUNT BILL ALT 26 0 - 32 IU/L [facility] ACCOUNT BILL Blood BLOOD SPECIMEN / Unknown 09/29/2024 10:05 AM REAL ESTATE SALES MANAGER 09/29/2024 Narrative [facility] ACCOUNT BILL - 09/30/2024 7:08 AM REAL ESTATE SALES MANAGER Performed at: 01 - [facility] [place] [id number] [place], [place] [id number] Access Control Specialist: Luke Palafox PhD, Phone: [phone] us Shalini Murray MD LAB - CHEMISTRY ORDERABLES Roxanna l Result Performing Organization Address City/[facility]/ZIP Co de Phone Number [facility] ACCOUNT BILL [address] [place] [address] * DEXA BONE DENSITY 2 SITES (03/18/2024) Anatomical Region Laterality Modality Other 03/18/2024 Narrative 03/18/2024 Ordered by an unspecified provider. us Scanned Document DEXA ORDERABLES Final Result from Last 3 Months or Most Recently Relevant to Health Maintenance Insurance [facility] MANAGED MEDICARE ADV Member Subscriber Plan / Payer (Ef fective 2020-Present) Name:Radha Harrison Relation to Subscriber:Self Name:Radha Harrison Payer ID:[id number] (NAIC) Type:Medicare-Managed Care Address: [place] [id number] [place] [id number] Care Teams School Year Nanny Relationship Specialty Start Date End Date Jacque Casey MD [address] [place] [address] [place] [address] PCP - General Family Medicine 12/03/23 [place] [address] [address] Rheumatology 12/10/23
--- OUTSIDE RECORDS SUMMARY | 2024-12-08 17:56 | XMS_ITS | Continuity of Care Document ---
Author Organization [facility] Address [address] [place] [address] [place] [address] Phone Care Team Providers Care Mason Liner Name Role Phone Carlos Romano Unavailable Unavailable Procedures Procedure Date Eye Exam Established Pt Ophthalmoscopy, Subsequent Ophthalmoscopy, Subsequent Advance Directives Directive Yes / No Effective Date File Name No Information Encounters Encounter Description Practice Location Reason(s) For Visit Diagnoses Date Provider Providers Copied on Encounter [facility], [address] [place] [address] [address], [place], [place], [id number], [place] tel:[phone] [facility] No Information Rosalina Gonzalez. [address] [place], [address], [place]. tel:[phone] Family History Family Member Type Diagnosis Age At Onset No Information Payers Payer name Insurance type Covered constitution party ID Authoriza tion(s) No Information Social History Type Description Quantity Date Captured Comments Sex Female Smoking Status No Information Chief Complaint And Reason For Visit No Information Reason For Referral Reason For Referral No Information History Of Present Illness Encounter Date Complaint History Of Prese nt Illness No Information Functional Status Date Functional Assessmen t No Information Instructions Date Instruction Additional Infor mation No Information Assessments Type Assessment Date No Information Patient Care Teams Name Effective Dates (start - stop) Status Members No Information
--- OUTSIDE RECORDS SUMMARY | 2024-12-08 17:56 | XMS_ITS | Encounter Summary ---
Author Organization [facility] Address [address] [place] [address] Phone Care Team Providers Care Scale Tank Operator Name Role Phone Jacque Casey MD Primary Care Provider David Young MD Unavailable [phone] Encounter Details Date Type Department Care Team (Late st Contact Info) Description 08/08/2023 Telephone [facility] G[facility]ology [facility] [address] [place] [address] [place] [address] Jo Garg LPN Social History Tobacco Use Types Packs/Day Years Used Date Smoking Tobacco: Never Smokeless Tobacco: Never AUDIT-C Answer Date Recorded Q1: How often do you have a drink containing alcohol? Never 09/12/2022 Q2: How many drinks containi ng alcohol do you have on a typical day when you are drinking? Patient does not drink Q3: How often do you have si x or more drinks on one occasion? Never 09/12/2022 Personal Safety Answer Date Recorded Getting School Help Needed Denies 07/30 Comments No Sex and Gender Information Value Date Recorded Sex Assigned at Not on file Legal Sex Female 12:43 AM STOCKROOM SUPERVISOR Gender Identity Female 01/02/2021 4:46 PM CDT [...] COVID: Suspected 09/17/2024 09/17/2024 09/17/2024 12:40 PM STOCKROOM SUPERVISOR COVID: Suspected 09/17/2024 09/17/2024 09/17/2024 8:05 PM STOCKROOM SUPERVISOR Influenza, adult 09/17/2024 09/17/2024 09/24/2024 3:05 AM STOCKROOM SUPERVISOR documented as of this encounter Care Teams Scale Tank Operator Relationship Specialty Start Date End Date Jacque Casey MD PCP - General Family Practice 03/04/18 David Young MD [address] DEPT OPHTHALMOLOGY, [address] [address] Surgeon Ophthalmology 09/06/23 documented as of this encounter
== END 2024-12-08 15:57 | disposition home or self-care (01) ==
PROVIDERS: PCP Family Medicine; Visit Provider Family Medicine
DX: R09.89 Other specified symptoms and signs involving the circulatory and respiratory systems (principal); I65.23 Occlusion and stenosis of bilateral carotid arteries
CPT/HCPCS: 93880

== ENCOUNTER 2025-04-07 14:46 | Outpatient (CLI) | payer MEDICARE, SELFPAY ==
--- NOTE | ~2025-04-07 | XR_ITS ---
XR knee LT min 4V 04/07/2025 15:11 Indication: Left knee pain Procedure: 4 views left knee Comparison: No prior studies for comparison. Findings: Status post left total knee arthroplasty. Prosthesis well seated. No fracture or traumatic malalignment. No joint effusion. Impression: 1: No acute abnormality of the left knee. Reviewed, dictated and finalized at location A. Impression: 1: No acute abnormality of the left knee.
== END 2025-04-07 14:47 | disposition home or self-care (01) ==
PROVIDERS: PCP Family Medicine; Visit Provider Family Medicine
DX: M25.562 Pain in left knee (principal)
CPT/HCPCS: 73564

== ENCOUNTER 2025-08-14 09:16 | Emergency (ER) | payer MEDICARE, SELFPAY ==
--- NOTE | ~2025-08-14 | XR_ITS ---
Examination: XR chest 2V Clinical History: cough fatigue Comparison: None Technique: PA and Lateral Findings: Cardiomediastinal silhouette normal size and configuration. Right basilar patchy opacity. No acute bony abnormality. IMPRESSION: 1. Small right basilar airspace disease. Recommend short interval follow up films. Reviewed, dictated and finalized at location R. [employer] DIRECTOR IMPRESSION: 1. Small right basilar airspace disease. Recommend short interval follow up fi lms.
[2025-08-14 09:39] VITALS: BP 153/65; PULSE 68; RESP 16; TEMP 36.5; O2SAT 97
--- NOTE | 2025-08-14 09:51 | ED.URI ---
HPI - URI/Sore Throat General Chief Complaint: Upper Respiratory Infection Stated Complaint: URI Symptoms Source: patient Mode of arrival: ambulatory Limitations: no limitations History of Present Illness HPI Narrative: 80 y/o female with hx DM and breast CA presented for c/o Coughing for 2 days, sinus pressure, and fatigue. Denies associated body aches, shortness of breath, nausea, vomiting, diarrhea or lethargy. Has taken cough syrup. Cannot take steroids or use albuterol. Related Data Home Medications ?Medication ?Instructions ?Recorded ?Confirmed ?Last Taken ?Type clobetasol 0.05 % topical cream 1 applic topical DAILY 04/05/21 08/14/25 Unknown History cholecalciferol (vitamin D3) 50 50 mcg PO DAILY 11/13/22 08/14/25 Unknown History mcg (2,000 unit) capsule hydroxychloroquine 200 mg tablet 200 mg PO BID 05/26/24 08/14/25 Unknown History Allergies Allergy/AdvReac Type Severity Reaction Status Date / Time cephalexin Allergy Mild Diarrhea Verified 08/14/25 09:48 Opioids-Meperidine and Allergy Mild Diarrhea Verified 08/14/25 09:48 Related Penicillins Allergy Unknown Unknown Verified 08/14/25 09:48 amoxicillin Allergy Swelling Verified 08/14/25 09:48 azithromycin Allergy Unknown Verified 08/14/25 09:48 sulfamethoxazole AdvReac Intermediate COULDNT Verified 08/14/25 09:48 WALK trimethoprim AdvReac Intermediate COULDNT Verified 08/14/25 09:48 WALK metformin AdvReac Mild Diarrhea Verified 08/14/25 09:48 semaglutide (From Ozempic) AdvReac Mild Diarrhea Verified 08/14/25 09:48 sitagliptin (From Januvia) AdvReac Mild Diarrhea Verified 08/14/25 09:48 Review of Systems Review of Systems: per HPI All systems reviewed & are unremarkable except as noted in HPI and below PMFSH Past Medical History Medical History Chronic venous insufficiency of lower extremity Vitamin D deficiency Polyarthralgia Knee pain Cervical arthritis Bilateral hand pain URI (upper respiratory infection) Left leg pain Lump of skin of right upper extremity History of deviated nasal septum Type 2 diabetes mellitus without complication, without long-term current use of insulin Unspecified osteoarthritis, unspecified site History of right breast cancer Chronic low back pain without sciatica Lichen sclerosus of female genitalia Vulva neoplasm Cirrhosis Arthritis Breast cancer RTX Carpal tunnel syndrome Surgical History Surgical History History of appendectomy History of cholecystectomy (~1974) History of foot surgery (~1979) History of carpal tunnel release (~1987) Hx of hysterectomy, total (~10/1992) History of lumpectomy (~2013) S/P surgery on nasal septum (~1969) History of carpal tunnel surgery History of total right knee replacement (~08/2004) History of total left knee replacement (~06/2000) H/O: hysterectomy Family History Family History Mother Polymyalgia rheumatica Son Trigeminal nerve disease Sibling Churg-Tung syndrome Mother Aneurysm Mother Heart disease Mother Carotid artery obstruction Other Family history of musculoskeletal disease Social History Social History Smoking status: Never smoker Second hand tobacco smoke exposure: No Alcohol intake: never Substance use: never Substance use type: does not use Lack of Transportation: No Lack of Food: Never True Current Housing: I Have Housing Concerned About Future Housing: No Difficulty Paying Gas/Electric Bills: No Difficulty Paying for Meds: No Currently Unemployed: No Education: High School Diploma/GED Difficulty w/ Childcare or Family Care: No Living arrangements: with family Additional living arrangements comments: Occupation/Education: retired Gender identity (if verbalized by the patient): Female Sexual Orientation (if Verbalized by the Patient): Straight or Heterosexual Spiritual care concerns: No Agree to blood products: Yes Comments At time of signature, I have reviewed and agree with nursing past medical, surgical, social and family history unless otherwise noted. Please see nursing chart for further information. There is no relevant family history pertinent to the presenting complaint Exam Narrative: GENERAL: mildly ill-appearing, in no acute distress. EYES: EOMI. No redness or drainage. Conjunctivae normal. ENT: Mucous membranes pink and moist. No rhinorrhea. TMs normal bilaterally. Throat normal. Uvula midline. NECK: Normal AROM. Supple. CHEST: No respiratory distress. Wheezing to left lung lombardi. Frequent moist cough. HEART: Regular rate and rhythm. No murmur appreciated. ABDOMEN: Soft, nontender, nondistended, normal active bowel sounds. SKIN: Warm, dry, no rash. Capillary refill normal. Normal skin turgor. NEURO: Alert and oriented x3. Gait steady. Course Course Level of Care: Express Care Visit Vital Signs Vital signs: Vital Signs Temperature 97.7 F 08/14/25 09:39 Pulse Rate 68 08/14/25 09:39 Respiratory Rate 16 08/14/25 09:39 Blood Pressure 153/65 H 08/14/25 09:39 Pulse Oximetry 97 08/14/25 09:39 Temperature 97.7 F 08/14/25 09:39 Pulse Rate 68 08/14/25 09:39 Respiratory Rate 16 08/14/25 09:39 Blood Pressure 153/65 H 08/14/25 09:39 Pulse Oximetry 97 08/14/25 09:39 MDM MDM Narrative Medical decision making narrative: results of chest x-ray reviewed with patient, will cover for pna given hx; reviewed RX. Negative flu and COVID. Discussed physical exam findings. Advised supportive measures and signs/symptoms to go to the ER. Pt is appropriate for outpt treatment and f/u. Cannot take steroids due to 'hx cirrhosis,' cannot take albuterol inhaler due to 'it doesn't work for me.' Differential Diagnosis Differential Diagnosis: influenza, covid, sinusitis, OM, strep pharyngitis, URI, bronchitis, pneumonia Lab Data Labs: Lab Results 08/14/25 Range/Units 10:00 POC Influenza A Ag Negative (Negative) POC Influenza B Ag Negative (Negative) POC SARS CoV-2 Ag Negative (Negative) Imaging Data Radiologist's impression: ITS Impressions Chest X-Ray 08/14/25 10:57 IMPRESSION: 1. Small right basilar airspace disease. Recommend short interval follow up films. Discharge Plan Discharge Clinical Impression: Bronchitis Patient Disposition: Home Condition: Stable Instructions: Antibiotic Form, Pneumonia (ED) Additional Instructions: Pneumonia is a lung infection that can cause a fever, cough, and trouble breathing. How it spreads: When someone with bacterial pneumonia coughs, sneezes, or talks, they release respiratory droplets into the air that can be inhaled by others.?You can also get pneumonia by touching a contaminated surface or object and then touching your mouth or nose. You're generally contagious for around 48 hours after starting antibiotics and your fever goes away.? To prevent the spread of pneumonia, you can:? ? Get vaccinated? ? Wash your hands often with soap and water for 20 seconds? ? Cover your mouth with a tissue when you cough or sneeze? ? Avoid people who are already sick with pneumonia? ? Stay home when you have pneumonia Take antibiotics as directed until complete. Take with food. You can also take Activia yogurt to help with GI symptoms. eat small frequent meals. Get lots of rest and drink fluids. Alternate Tylenol and ibuprofen for pain/fever Rjic-[id number] cough medication can cause drowsiness, take according to package directions If you have nasal congestion, you can take Zyrtec, Claritin along with Flonase spray Call your Primary Care Doctor and make a follow-up appointment in 3 days. Go to the ER for worsening symptoms or concerns Patient Language: Khmer Prescriptions: New doxycycline hyclate 100 mg tablet 100 mg PO BID 7 Days Qty: 14 0RF No Action cholecalciferol (vitamin D3) 50 mcg (2,000 unit) capsule 50 mcg PO DAILY (DME) Blood Glucose Test Strip See Rx Instructions .ROUTE .MEDSUPPLY Qty: 100 5RF Rx Instructions: check blood sugars t.i.d. a.c. As directed (DME) lancets 33 gauge misc See Rx Instructions .ROUTE .MEDSUPPLY Qty: 100 5RF Rx Instructions: check blood sugars t.i.d. a.c. As directed hydroxychloroquine 200 mg tablet 200 mg PO BID clobetasol 0.05 % cream 1 applic topical DAILY glimepiride 1 mg tablet 1 mg PO QAM Qty: 90 1RF Rx Instructions: administer with breakfast Follow-up/Referrals: Joe Casey MD [Primary Care Provider, Family Practice] Time of Disposition: 11:24
[2025-08-14 10:03] LABS: EDCOVIDSCREEN Negative (Negative); EDINFLUASCREEN Negative (Negative); EDINFLUBSCREEN Negative (Negative)
== END 2025-08-14 11:28 | disposition home or self-care (01) ==
PROVIDERS: Emergency Provider Nurse Practitioner Family; PCP Family Medicine
DX: J40 Bronchitis, not specified as acute or chronic (principal); Z20.822 Contact with and (suspected) exposure to COVID-19; E11.9 Type 2 diabetes mellitus without complications; Z79.84 Long term (current) use of oral hypoglycemic drugs; K74.60 Unspecified cirrhosis of liver; E55.9 Vitamin D deficiency, unspecified; M19.90 Unspecified osteoarthritis, unspecified site; M47.812 Spondylosis without myelopathy or radiculopathy, cervical region; N90.4 Leukoplakia of vulva; Z85.3 Personal history of malignant neoplasm of breast; Z96.653 Presence of artificial knee joint, bilateral
CPT/HCPCS: 71046; 87426; 87804; 99213; G0463